=== PATIENT | female | born 1955 | race Caucasian/White ===

== ENCOUNTER 2016-03-31 18:49 | Emergency (ER) | payer OTHER, MEDICAID ==
--- NOTE | 2016-03-31 22:08 | ER Document Report ---
ED Fall - General Mode of Arrival: Ambulatory Information source: Patient TRAVEL OUTSIDE OF THE [place] IN LAST 30 DAYS: No - HPI Patient complains to provider of: knee pain Occurred: Just prior to arrival Associated symptoms: Other - See above - General Chief Complaint: Knee Pain Stated Complaint: FALL,LEFT KNEE PAIN Notes: Patient is a 60 year old female who presents to the emergency department with her daughter complaining of left knee pain after a fall just prior to arrival. Patient reports she was walking into her kitchen from the back porch when she fell forward. Patient denies hitting her head and loss of consciousness. Patient also complains of left great toe pain. (MEJIA SUNSHINE) - Related data Allergies/Adverse Reactions: Sulfa (Sulfonamide Antibiotics) Allergy (Severe, Verified 03/31/16 21:48) Hives Past Medical History - General Information source: Patient - Social History Smoking Status: Never Smoker Family History: Reviewed & Not Pertinent - Past Medical History Cardiac Medical History: Comment Only: Hx Hypertension - hypotension Pulmonary Medical History: Reports: Hx Asthma, Hx Bronchitis, Hx Pneumonia Neurological Medical History: Reports: Hx Migraine Endocrine Medical History: Reports: Hx Diabetes Mellitus Type 1, Hx Diabetes Mellitus Type 2, Hx Hypothyroidism Malignancy Medical History: Reports: Hx Breast Cancer GI Medical History: Reports: Hx Cirrhosis, Hx Gastroesophageal Reflux Disease Musculoskeltal Medical History: Reports Hx Arthritis Psychiatric Medical History: Reports: Hx Bipolar Disorder, Hx Depression Past Surgical History: Reports: Hx Hysterectomy, Hx Orthopedic Surgery - l hand. r foot surgeries, Hx Tonsillectomy - Immunizations Hx Diphtheria, Pertussis, Tetanus Vaccination: Yes - 2012 Review of Systems - Review of Systems Constitutional: No symptoms reported EENT: No symptoms reported Cardiovascular: No symptoms reported Respiratory: No symptoms reported Gastrointestinal: No symptoms reported Genitourinary: No symptoms reported Female Genitourinary: No symptoms reported Musculoskeletal: Joint pain - left knee, Other - left great toe pain Skin: No symptoms reported Hematologic/Lymphatic: No symptoms reported Neurological/Psychological: denies: Lost consciousness, Headaches -: Yes All other systems reviewed and negative Physical Exam - Vital signs Interpretation: Normal - General General appearance: Appears well, Alert - HEENT Head: Normocephalic, Atraumatic - Respiratory Respiratory status: No respiratory distress Chest status: Nontender Breath sounds: Normal Chest palpation: Normal - Cardiovascular Rhythm: Regular Heart sounds: Normal auscultation Murmur: No Pulses: Normal: Dorsalis pedis - Abdominal Inspection: Normal Distension: No distension Bowel sounds: Normal Tenderness: Nontender Organomegaly: No organomegaly - Extremities General upper extremity: Normal inspection General lower extremity: Other - Pain to palpation of left anterior tibia, no obvious deformities. Tenderness to palpation of left great toe. - Neurological Neuro grossly intact: Yes Cognition: Normal Orientation: AAOx4 Obdulia Coma Scale Eye Opening: Spontaneous Obdulia Coma Scale Verbal: Oriented Donnellson Coma Scale Motor: Obeys Commands Obdulia Coma Scale Total: 15 Speech: Normal - Psychological Associated symptoms: Normal affect, Normal mood - Skin Skin Temperature: Warm Skin Moisture: Dry Skin Color: Normal Course - Re-evaluation Re-evalutation: 04/01/16 02:10 I personally performed the services described in the documentation, reviewed and edited the documentation which was dictated to my scribe in my presence, and it accurately records my words and actions. presents emergency per with left knee pain left toe pain. Patient states she was walking in the back of the house slipped tripped and fell onto her knee. She denies hitting her head or loss consciousness no head neck chest back or abdominal pain. Pain to the knee on the anterior tibial no obvious swelling deformity ecchymosis contusion or ligamentous instability no Tenderness or swelling. On examination of the foot mild tenderness left great toe no obvious swelling deformity ecchymosis contusion or joint tenderness. Acute x-rays negative. We'll treat with Tylenol Motrin knee immobilizer postop shoe follow primary care physician discussed reasons Fredia return sooner (CADEN LEZAMA) - Vital Signs Vital signs: Temp Pulse Resp BP Pulse Ox 98.3 F 58 L 18 126/68 H 94 03/31/16 19:54 03/31/16 19:54 03/31/16 19:54 03/31/16 19:54 03/31/16 19:54 (MEJIA SUNSHINE) (CADEN LEZAMA) Discharge - Discharge Clinical Impression: Fall Qualifiers: Encounter type: initial encounter Qualified Code(s): W19.XXXA - Unspecified fall, initial encounter Knee sprain Qualifiers: Encounter type: initial encounter Involved ligament of knee: unspecified ligament Laterality: left Qualified Code(s): S83.92XA - Sprain of unspecified site of left knee, initial encounter Toe sprain Qualifiers: Encounter type: initial encounter Qualified Code(s): S93.509A - Unspecified sprain of unspecified toe(s), initial encounter Condition: Stable Disposition: HOME, SELF-CARE Instructions: Knee Immobilizing Splint ([facility]), Sprain ([facility]) Additional Instructions: Sprain Your injury is a sprain. A sprain results from stretching or tearing of the ligaments, usually from a twisting injury. The ligaments will require time and protection in order to heal properly. Many sprains are quite disabling and should be taken seriously. The usual initial treatment of sprains is cold packs, elevation, and rest of the injured area. Your physician has assessed the seriousness of your ligament injury, and has outlined a treatment plan. Understand that this treatment may change, depending on how you progress. If a re-examination was recommended, it is important that you follow up as instructed. Call the doctor any time if there is severe pain, numbness, or loss of function in the injured area. Operative primary care physician for 5 days return for increasing worsening or new symptoms Scribe Documentation - Scribe Written by Eren:: eren Mckeon, 03/31/16, 24:14 acting as scribe for :: Emmett
[2016-03-31] MEDS ORDERED: HYDROCODONE/ACETAMINOPHEN 5-325 MG TABLET PO ONE (22:09)
[2016-04-01 02:51] VITALS: BP 110/50
== END 2016-04-01 03:06 | disposition home or self-care (01) ==
LOC: ER 18:49
DX: S83.92XA Sprain of unspecified site of left knee, initial encounter (principal); S93.509A Unspecified sprain of unspecified toe(s), initial encounter; W01.0XXA Fall on same level from slipping, tripping and stumbling without subsequent striking against object, initial encounter; Y93.89 Activity, other specified; Y92.000 Kitchen of unspecified non-institutional (private) residence as the place of occurrence of the external cause; M25.562 Pain in left knee; M79.675 Pain in left toe(s); J45.909 Unspecified asthma, uncomplicated; E11.9 Type 2 diabetes mellitus without complications; Z85.3 Personal history of malignant neoplasm of breast; Z88.2 Allergy status to sulfonamides
CPT/HCPCS: 99283; 73562; 73660; L1830

== ENCOUNTER 2016-10-09 21:25 | Inpatient (IN) | payer OTHER, MEDICAID ==
[2016-10-09] MEDS ORDERED: IPRATROPIUM/ALBUTEROL 0.5-2.5 MG/3 ML AMPUL NEB ONE ×2 (21:40→21:42)
[2016-10-09] MEDS ORDERED: METHYLPREDNISOLONE INJ 125 MG/2 ML SDV IV ONE (21:40)
[2016-10-09] MEDS ORDERED: ALBUTEROL SULFATE 0.083% NEB 2.5 MG/3 ML AMPUL NEB ONE ×2 (21:45→23:17)
[2016-10-09] MEDS ORDERED: MAGNESIUM SULFATE/D5W 2 GM/200 ML RTUPB IV ONE (21:46)
--- NOTE | 2016-10-09 21:51 | ER Document Report ---
ED General - General Chief Complaint: Asthma Exacerbation Stated Complaint: DIFFICULTY BREATHING Time Seen by Provider: 10/09/16 21:42 Cannot obtain history due to: Unstable vital signs, Other - Respiratory distress Notes: Patient is a 61-year-old female with past medical history of asthma, not a smoker, no prior intubations but does have prior hospitalizations for the same who presents with apparently 2 days of progressively worsening shortness of breath and cough. History is extremely limited secondary to patient's severe respiratory distress at time of initial assessment and her difficulty speaking. Patient apparently has been taking albuterol inhalers at home without improvement. She has not been able to see her primary care doctor about her worsening symptoms. Notes that she has had a persistent cough which worsens her symptoms. Denies any associated fever or sputum production. TRAVEL OUTSIDE OF THE [place] IN LAST 30 DAYS: No - Related Data Allergies/Adverse Reactions: Sulfa (Sulfonamide Antibiotics) Allergy (Severe, Verified 10/09/16 22:05) Hives Past Medical History - General Information source: Patient - Social History Smoking Status: Never Smoker Frequency of alcohol use: None Drug Abuse: None Lives with: Family Family History: Reviewed & Not Pertinent Patient has suicidal ideation: No Patient has homicidal ideation: No - Past Medical History Cardiac Medical History: Comment Only: Hx Hypertension - hypotension Pulmonary Medical History: Reports: Hx Asthma, Hx Bronchitis, Hx Pneumonia Neurological Medical History: Reports: Hx Migraine Endocrine Medical History: Reports: Hx Diabetes Mellitus Type 1, Hx Diabetes Mellitus Type 2, Hx Hypothyroidism Renal/ Medical History: Denies: Hx Peritoneal Dialysis Malignancy Medical History: Reports: Hx Breast Cancer GI Medical History: Reports: Hx Cirrhosis, Hx Gastroesophageal Reflux Disease Musculoskeltal Medical History: Reports Hx Arthritis Psychiatric Medical History: Reports: Hx Bipolar Disorder, Hx Depression Past Surgical History: Reports: Hx Hysterectomy, Hx Orthopedic Surgery - l hand. r foot surgeries, Hx Tonsillectomy - Immunizations Hx Diphtheria, Pertussis, Tetanus Vaccination: Yes - 2012 Review of Systems - Review of Systems Notes: Constitutional: Negative for fever. HENT: Negative for sore throat. Eyes: Negative for visual changes. Cardiovascular: Negative for chest pain. Respiratory: Positive for shortness of breath. Gastrointestinal: Negative for abdominal pain, vomiting or diarrhea. Genitourinary: Negative for dysuria. Musculoskeletal: Negative for back pain. Skin: Negative for rash. Neurological: Negative for headaches, weakness or numbness. 10 point ROS negative except as marked above and in HPI. Physical Exam - Vital signs Vitals: Temp Pulse Resp BP Pulse Ox 98.2 F 79 28 H 137/56 H 85 L 10/09/16 21:36 10/09/16 21:36 10/09/16 21:36 10/09/16 21:36 10/09/16 21:36 Interpretation: Tachycardic, Hypoxic Notes: PHYSICAL EXAMINATION: GENERAL: Patient is in severe respiratory distress, retracting and appears extremely uncomfortable HEAD: Atraumatic, normocephalic. EYES: Pupils equal round and reactive to light, extraocular movements intact, sclera anicteric, conjunctiva are normal. ENT: nares patent, oropharynx clear without exudates. Moderately dry mucous membranes. NECK: Normal range of motion, supple without lymphadenopathy LUNGS: Poor air movement throughout, extensive wheezing in all lung bran with a prolonged expiratory phase. Intercostal and supraclavicular retractions are present. Tachypnea with initial respiratory rate of 32 at time of my assessment. HEART: Regular rate and rhythm without murmurs ABDOMEN: Soft, nontender, normoactive bowel sounds. No guarding, no rebound. No masses appreciated. EXTREMITIES: Normal range of motion, no pitting or edema. No cyanosis. NEUROLOGICAL: No focal neurological deficits. Moves all extremities spontaneously and on command. PSYCH: Appears anxious SKIN: Warm, Dry, normal turgor, no rashes or lesions noted. Course - Re-evaluation Re-evalutation: 10/09/16 21:50 Patient presents in severe respiratory distress, only able to speak to her that needed to take a breath. Respiratory rate 28 breaths per minute with intercostal retractions and supraclavicular retractions. Initial oxygen saturation 85% on room air. Diffuse core with wheezing in all lung bran with poor air movement bilaterally on initial examination. Patient was immediately placed on a continuous albuterol and Atrovent nebulizer, IV access was established and Solu-Medrol, magnesium were administered. She will be monitored very closely given her ill appearance, poor respiratory status, and is at risk for respiratory decompensation. Is critically ill at this time. 10/09/16 22:06 Venous blood gas does show appropriate hypocapnia although on reassessment patient continues to be in respiratory distress, appears to be fatiguing. Patient notes that she does feel extremely tired. Will place on BiPAP immediately at this time. 10/09/16 23:10 Patient is now much improved on BiPAP, continues to be wheezing throughout but much improved work of breathing and air movement at this time. 10 additional milligrams of albuterol will be started at this time. I have discussed with Dr. Douglas who will admit - Vital Signs Vital signs: Temp Pulse Resp BP Pulse Ox 98.2 F 79 18 124/64 94 10/09/16 21:36 10/09/16 21:36 10/10/16 00:08 10/10/16 00:08 10/10/16 00:08 - Laboratory Result Diagrams: 10/09/16 21:40 10/09/16 21:40 Laboratory results interpreted by me: 10/09/16 10/09/16 10/09/16 21:40 21:40 21:40 Plt Count 91 L VBG pCO2 33.5 L Est GFR (Non-Af Amer) 49 L AST 10/09/16 21:40 Plt Count VBG pCO2 Est GFR (Non-Af Amer) AST 47 H - Diagnostic Test Radiology reviewed: Image reviewed, Reports reviewed Radiology results interpreted by me: 10/09/16 23:15 Chest x-ray: No acute infiltrate or pneumothorax Critical Care Note - Critical Care Note Total time excluding time spent on procedures (mins): 45 Comments: Critical care time spent obtaining history from patient or surrogate, discussions with consultants, development of treatment plan with patient or surrogate, evaluation of patient's response to treatment, examination of patient , ordering and performing treatments and interventions, ordering and review of laboratory studies, re-evaluation of patient's condition, ordering and review of radiographic studies and review of old charts Discharge - Discharge Clinical Impression: Respiratory distress, Asthma exacerbation Condition: Fair Disposition: ADMITTED INPATIENT Admitting Provider: Shantal Douglas Unit Admitted: [facility]
[2016-10-09] MEDS: MAGNESIUM SULFATE/D5W 100 ML IV SCH ×2 (21:55→22:30)
[2016-10-09] MEDS: ALBUTEROL SULFATE 0.083% NEB 2.5 MG/3 ML AMPUL NEB SCH ×2 (21:57→22:30)
[2016-10-09 22:03] LABS: VENOUS BLOOD HCO3 20.1 mmol/L (20-32); VENOUS BLOOD PCO2 33.5 mmHg (35-63); VENOUS BLOOD PH 7.4 (7.30-7.42)
[2016-10-09 22:07] LABS: ABSOLUTE EOSINOPHILS # (AUTO) 0.1 10^3/uL (0.0-0.6); ABSOLUTE LYMPHOCYTES (AUTO) 1.2 10^3/uL (0.5-4.7); ABSOLUTE MONOCYTES (AUTO) 0.8 10^3/uL (0.1-1.4); ABSOLUTE NEUT (AUTO) 4.6 10^3/uL (1.7-8.2); BASOPHILS % (AUTO) 0.5 % (0-2); EOSINOPHILS % (AUTO) 1.6 % (0-6); HEMATOCRIT 42.7 % (36.0-47.0); HEMOGLOBIN 13.8 g/dL (12.0-15.5); HGB HCT DIFFERENCE -1.3; LYMPHOCYTES % (AUTO) 18.4 % (13-45); MEAN CORPUSCULAR HEMOGLOBIN 28.7 pg (27.0-33.4); MEAN CORPUSCULAR HGB CONC 32.4 g/dL (32.0-36.0); MEAN CORPUSCULAR VOLUME 89 fl (80-97); MONOCYTES % (AUTO) 11.1 % (3-13); RED BLOOD COUNT 4.82 10^6/uL (3.72-5.28); SEGMENTED NEUTROPHILS % (AUTO) 68.4 % (42-78); WHITE BLOOD COUNT 6.8 10^3/uL (4.0-10.5)
--- NOTE | 2016-10-09 22:12 | RADIOLOGY REPORT (SQ) ---
EXAM DESCRIPTION: CHEST SINGLE VIEW COMPLETED DATE/TIME: 10/09/2016 10:00 pm REASON FOR STUDY: difficulty breathing COMPARISON: 04/11/2015. EXAM PARAMETERS: NUMBER OF VIEWS: One view. TECHNIQUE: Single frontal radiographic view of the chest acquired. RADIATION DOSE: NA LIMITATIONS: None. FINDINGS: LUNGS AND PLEURA: No opacities, masses or pneumothorax. No pleural effusion. MEDIASTINUM AND HILAR STRUCTURES: No masses. Contour normal. HEART AND VASCULAR STRUCTURES: Heart upper limits of normal in size. Normal vasculature. BONES: No acute findings. HARDWARE: None in the chest. OTHER: No other significant finding. IMPRESSION: NO ACUTE RADIOGRAPHIC FINDING IN THE CHEST. TECHNICAL DOCUMENTATION: JOB ID: [id number]
[2016-10-09 22:20] LABS: ANION GAP 13 (5-19); BLOOD UREA NITROGEN 19 mg/dL (7-20); CARBON DIOXIDE 24 mmol/L (22-30); CHLORIDE 105 mmol/L (98-107); CREATININE RESULT 1.12 mg/dL (0.52-1.25); GLUCOSE 100 mg/dL (75-110); POTASSIUM 4.9 mmol/L (3.6-5.0); SODIUM 142.4 mmol/L (137-145)
[2016-10-09] MEDS ORDERED: KETOROLAC TROMETHAMINE INJ/PF 30 MG/1 ML SDV IV ONE (23:17)
[2016-10-09 23:26] LABS: ADD ON TESTING BLD IN LAB ACKNOWLEDGE
[2016-10-09 23:39] LABS: ALANINE AMINOTRANSFERASE 42 U/L (9-52); ALBUMIN 4.4 g/dL (3.5-5.0); ALKALINE PHOSPHATASE 64 U/L (38-126); ASPARTATE AMINO TRANSFERASE 47 U/L (14-36); BILIRUBIN,DIRECT 0.4 mg/dL (0.0-0.4); BILIRUBIN,TOTAL 0.7 mg/dL (0.2-1.3); MAGNESIUM 1.7 mg/dL (1.6-2.3); TOTAL PROTEIN 7.7 g/dL (6.3-8.2)
[2016-10-10 00:16] LABS: APPEARANCE,URINE CLEAR; BILIRUBIN,URINE NEGATIVE (NEGATIVE); GLUCOSE, URINE NEGATIVE (NEGATIVE); KETONES,URINE NEGATIVE (NEGATIVE); LEUKOCYTE ESTERASE,URINE MODERATE (NEGATIVE); NITRITE,URINE NEGATIVE (NEGATIVE); PROTEIN,URINE NEGATIVE (NEGATIVE); URINE SPECIFIC GRAVITY 1.013; UROBILINOGEN,URINE NEGATIVE mg/dL (<2.0)
[2016-10-10] MEDS ORDERED: GLUCAGON,HUMAN RECOMB 1 MG INJ IM PRN (00:45)
[2016-10-10] MEDS ORDERED: DEXTROSE 40% GEL 15 GM TUBE PO PRN ×2 (00:45)
[2016-10-10] MEDS ORDERED: DEXTROSE 50%-WATER 25 GM/50 ML DISP.SYRIN IV PRN ×2 (00:45)
[2016-10-10] MEDS ORDERED: NORMAL SALINE 1000 ML 1,000 ML IV PRN (00:53)
[2016-10-10] MEDS ORDERED: ALBUTEROL SULFATE 0.083% NEB 2.5 MG/3 ML AMPUL NEB PRN (00:53)
[2016-10-10] MEDS ORDERED: ACETAMINOPHEN 325 MG TABLET PO PRN (00:56)
[2016-10-10] MEDS ORDERED: MAGNESIUM HYDROXIDE SUSP 30 ML UDCUP PO PRN (00:57)
--- NOTE | 2016-10-10 01:23 | PDOC H&P ---
History of Present Illness Admission Date/PCP: 10/10/16 00:47 Primary care provider [facility] Patient complains of: Difficulty breathing History of Present Illness: IGOR MCCULLOUGH is a 61 year old female with underlying asthma, but by her account not COPD, who presents to the emergency room for evaluation treatment of a 24 hour history of progressive difficulty breathing. Associated wheezing, along with chills and a cough productive of small amounts of brown sputum. No fever, nausea vomiting, or dysuria. Intermittent chronic diarrhea, which is not a new problem for her. Mild chest wall discomfort with her coughing. Otherwise, no chest or abdominal pain. Was in significant respiratory distress upon arrival, but has responded well to treatment so far, including application of BiPAP. Currently breathing much more comfortably now and resting quietly. Does not recall a specific triggering event that led to above symptoms. Last antibiotic use 2 months ago for respiratory issues, consisting of a 10 day course of Cipro. No hospitalization in the last 3 months. No prior intubation for respiratory difficulty. No home oxygen. As needed steroids only. Patient has been discussed with emergency room physician who evaluated the patient. . Laboratory results are listed in [facility] and are reviewed. X-ray summary results are listed below, with full report(s) reviewed. . Social history/personal habits: . 4 children. Retired. Lives with daughter. No use of alcohol tobacco or illicit drugs. Allergies/adverse reactions are listed in [facility] and are reviewed. Home medications initially autopopulated into [facility] may not accurately reflect patient's true medications, dosages, and/or frequencies. cardiovascular surgical tech to reconcile medications. Unfortunately, patient not certain of all medications/dosages/frequencies. REVIEW OF SYSTEMS: Constitutional: See history and present illness. Eyes: Wears glasses. ENT: No swallowing problems or complaints. Denies hearing loss. Pulmonary: See history and present illness. Cardiovascular: See history and present illness. Gastrointestinal: See history and present illness. Skin: No current complaints, including rashes. Hematologic: Easy bruising. Neurologic: No current complaints, including numbness or tingling. Musculoskeletal: Joint pain from arthritis. Psychiatric: Denies anxiety or depression. Endocrine: No current complaints, including polyuria. Genitourinary: No current complaints, including dysuria. 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 5 feet 6 inches tall. 83.9 kg. BMI 29.9 kg/m. Blood pressure 124/64. Pulse 76 and regular. 98% saturation on BiPAP 10/6, 60% FiO2. Respirations are 16 and unlabored. Temperature 98.2. Slightly overweight otherwise well-nourished well-developed though somewhat chronically ill-appearing female who appears perhaps a bit older than her stated age. Somewhat fatigued appearance. Appears to feel a bit under the weather, so to speak. Otherwise, awake alert and cooperative. Mildly anxious, without agitation. Skin is warm and dry. No grossly obvious evidence of rash in areas of skin examined. No subcutaneous nodules palpated. ENT: Hearing grossly normal to normal conversation. Tongue midline on protrusion pink and slightly tacky. Exam slightly limited by BiPAP mask with attaching straps. Eyes: No scleral icterus. Pupils equal and reactive to light at 4 mm. [place] conjunctivae. Neck is supple and nontender to gentle active range of motion and palpation. Midline trachea. No palpable thyroid nodule mass enlargement or tenderness. Lymphatic: No palpable cervical or clavicular nodes. Neck and lymphatic exams limited by patient body habitus. Exam slightly limited by BiPAP mask with attaching straps. Psychiatric: Reasonable insight into acute and chronic medical issues. Oriented to time location and why here. Lungs: Auscultation reveals equal breath sounds bilaterally. No use of accessory respiratory muscles. Mild diffuse inspiratory and expiratory wheezing throughout, with expiratory component more prominent Cardiovascular: Heart regular rate and rhythm, without gallop murmur or rub. No abdominal aortic bruits. No ankle or pedal edema. Palpable dorsalis pedis pulses. Difficult to evaluate for carotid bruit due to airway sounds from BiPAP device. Abdomen:soft slightly distended nontender with positive bowel sounds. Unable to adequately evaluate abdomen for masses or organomegaly due to distention. Extremities: Feet are warm and dry. No calf tenderness to compression. No grossly obvious visual evidence of calf swelling. Gentle manipulation of lower extremities fails to reveal any obvious evidence of injury or instability to knees hips or ankles. Neurologic: Moves upper extremities grossly normally. Patellar reflexes absent. Absent Babinski. Light touch is intact at feet. Dorsiflexion and plantarflexion of feet 5 / 5 and symmetric. Past Medical History Cardiac Medical History: Reports: Hyperlipidema Denies: Atrial Fibrillation, Congestive Heart Failure, DVT, Myocardial Infarction, Hypertension, Pulmonary Embolism Pulmonary Medical History: Reports: Asthma, Bronchitis, Pneumonia Denies: Sleep Apnea EENT Medical History: Reports: Eyes - Reading glasses Denies: Ears, Throat Neurological Medical History: Reports: Migraine Denies: Hemorrhagic CVA, Ischemic CVA, Seizures Endocrine Medical History: Reports: Diabetes Mellitus Type 1, Diabetes Mellitus Type 2, Hypothyroidism Denies: Hyperthyroidism Renal/ Medical History: Reports: Other - Frequent urinary tract infections. Malignancy Medical History: Reports: Breast Cancer - S/P partial mastectomy, with chemoradiation treatment, completed 2013 GI Medical History: Reports: Cirrhosis - Uncertain etiology per patient., Gastroesophageal Reflux Disease Denies: Peptic Ulcer Disease Musculoskeltal Medical History: Reports: Arthritis Skin Medical History: Reports: None Psychiatric Medical History: Reports: Bipolar Disorder Denies: Alcohol Dependency, Substance Abuse, Tobacco Dependency Hematology: Reports: Anemia - Currently, Other - Easy bruising Infectious Medical History: Denies: Clostridium Difficile, Methicillin-Resistant Staph Aureus Past Surgical History Past Surgical History: Reports: Hysterectomy, Mastectomy - Partial right mastectomy, 2013, Orthopedic Surgery - l hand. r foot surgeries, Tonsillectomy Social History Information Source: Patient, Emergency Med Personnel, [facility] Records Smoking Status: Unknown if Ever Smoked Frequency of Alcohol Use: None Hx Recreational Drug Use: No Drugs: None Hx Prescription Drug Abuse: No - Advance Directive Resuscitation Status: Full Code Surrogate healthcare decision maker:: Daughter Kalee Mccullough Family History Family History: Reviewed & Not Pertinent Parental Family History Reviewed: Yes - Mother of renal failure. Father of "broken heart" Children Family History Reviewed: Yes - Son with asthma. Sibling(s) Family History Reviewed.: Yes - One sister of cancer; other after pneumonia. Medication/Allergy Home Medications: Trazodone HCl [Desyrel] 300 mg PO HSP PRN 10/10/16 Acyclovir [Acyclovir 400 mg Tablet] 400 mg PO ASDIR PRN 10/11/16 Albiglutide [Tanzeum] 30 mg INJ FR@1000 10/11/16 Albuterol Sulfate [Proair HFA] 2 puff IH Q4HP PRN 10/11/16 Aspirin [Aspirin EC] 81 mg PO DAILY 10/11/16 Celecoxib [Celebrex 200 mg Capsule] 200 mg PO Q12 10/11/16 Cetirizine HCl [Zyrtec 10 mg Tablet] 10 mg PO DAILYP PRN 10/11/16 Donepezil HCl [Aricept] 10 mg PO DAILY 10/11/16 Fenofibrate Nanocrystallized [Tricor 145 mg Tablet] 145 mg PO DAILY 10/11/16 Fluticasone/Salmeterol [Advair 100-50 Diskus 28 Dose] 1 puff IH Q12 10/11/16 Hydroxyzine HCl [Atarax 25 mg Tablet] 25 mg PO HSP PRN 10/11/16 Insulin Aspart [Novolog Insulin (Aspart) 100 unit/mL] 0 unit SQ MEALS PRN Insulin Glargine,Hum.rec.anlog [Lantus Solostar] 90 units SQ QHS 10/11/16 Ipratropium/Albuterol Sulfate [Iprat-Albut 0.5-3(2.5) mg/3 ml] 3 ml NEB RTQ4HP PRN 10/11/16 Lamotrigine [Lamictal] 200 mg PO DAILY 10/11/16 Levothyroxine Sodium [Synthroid 0.05 mg Tablet] 50 mcg PO QAM 10/11/16 Lorazepam [Ativan 1 mg Tablet] 1 mg PO Q12HP PRN 10/11/16 Metformin HCl [Glucophage] 1,000 mg PO BID 10/11/16 Montelukast Sodium [Singulair 10 mg Tablet] 10 mg PO QPM 10/11/16 Pantoprazole Sodium [Protonix] 40 mg PO DAILY 10/11/16 Pnv with Ca,No.72/Iron/FA [ Plus Tablet] 1 tab PO DAILY 10/11/16 Pregabalin [Lyrica 100 mg Capsule] 100 mg PO Q8 10/11/16 Rosuvastatin Calcium [Crestor 20 mg Tablet] 20 mg PO DAILY 10/11/16 Tolterodine Tartrate [Detrol LA] 4 mg PO DAILY 10/11/16 Ziprasidone HCl [Geodon 60 mg Capsule] 60 mg PO DAILY 10/11/16 Levofloxacin [Levaquin 750 mg Tablet] 750 mg PO DAILY@1400 #5 tablet 10/12/16 Prednisone [Sterapred Ds] 1 pkg PO ASDIR PRN 12 Days 10/12/16 Allergies/Adverse Reactions: Sulfa (Sulfonamide Antibiotics) Allergy (Severe, Verified 10/09/16 22:05) Hives Physical Exam Vital Signs: Temp Pulse Resp BP Pulse Ox 98.2 F 79 17 124/64 98 10/09/16 21:36 10/09/16 21:36 10/10/16 00:35 10/10/16 00:08 10/10/16 00:35 Results Impressions: Chest X-Ray 10/09/16 21:40 IMPRESSION: NO ACUTE RADIOGRAPHIC FINDING IN THE CHEST. Assessment & Plan - Diagnosis (1) Bipolar disorder Qualifiers: Active/Remission status: remission status unspecified Qualified Code (s): F31.9 - Bipolar disorder, unspecified Is this a current diagnosis for this admission?: YesPlan: Resume home medications as appropriate once these have been determined and reviewed. (2) Acute and chronic respiratory failure with hypoxia Is this a current diagnosis for this admission?: YesPlan: Patient will be admitted under asthma exacerbation protocol. Incentive spirometry twice a day. Scheduled DuoNeb's. As needed albuterol nebs. Solu-Medrol. Prevacid for gastritis prophylaxis. Maintain CPAP; wean as tolerated. I strongly encouraged patient to notify staff should patient feel that breathing is worsening. Patient is a full code. I have strongly encouraged patient not to get out of bed without notifying staff , to avoid a fall with injury. Knee high SCDs for DVT prophylaxis; with underlying thrombocytopenia, likely secondary to her cirrhosis, we will forego Lovenox or heparin at this point in time. Impression and plans were discussed with patient who concurs. Time spent in evaluation and management of patient: 70 critical-care minutes. (3) Asthma exacerbation Is this a current diagnosis for this admission?: Yes (4) UTI (urinary tract infection) Qualifiers: Urinary tract infection type: site unspecified Is this a current diagnosis for this admission?: YesPlan: Blood and urine cultures. Rocephin. (5) Diabetes mellitus type 1 Qualifiers: Diabetes mellitus complication status: without complication Qualified Code(s): E10.9 - Type 1 diabetes mellitus without complications Is this a current diagnosis for this admission?: YesPlan: Ice chips only while on CPAP.. Accu-Cheks with appropriate sliding scale coverage. Resume home medications as appropriate once these have been determined and reviewed. (6) HLD (hyperlipidemia) Qualifiers: Hyperlipidemia type: unspecified Qualified Code(s): E78.5 - Hyperlipidemia, unspecified Is this a current diagnosis for this admission?: YesPlan: Resume home medications as appropriate once these have been determined and reviewed. (7) Hypothyroidism Qualifiers: Hypothyroidism type: unspecified Qualified Code(s): E03.9 - Hypothyroidism, unspecified Is this a current diagnosis for this admission?: YesPlan: TSH pending. Resume home medications as appropriate once these have been determined and reviewed. (8) Thrombocytopenia Is this a current diagnosis for this admission?: YesPlan: Likely due to underlying cirrhosis. Follow-up CBC with differential. - Time Anticipated discharge: Home Within: within 72 hours - Inpatient Certification Based on my medical assessment, after consideration of the patient's comorbidities, presenting symptoms, or acuity I expect that the services needed warrant INPATIENT care.: Yes I certify that my determination is in accordance with my understanding of Medicare's requirements for reasonable and necessary INPATIENT services [42 CFR 412.3e].: Yes Medical Necessity: Need Close Monitoring Due to Risk of Patient Decompensation, Need For IV Fluids, Need For Continuous Telemetry Monitoring, Need for Nebulizer Therapy and Monitoring of Response, Need for IV Antibiotics, Risk of Complication if Not Cared For in Hospital Post Hospital Care: D/C or Transfer Summary
[2016-10-10] MEDS ORDERED: CEFTRIAXONE 1 GM/D5W RTU 1 GM/50 ML RTUPB IV ONE (02:00)
[2016-10-10 02:10] LABS: VENOUS BLOOD BASE EXCESS 0.8 mmol/L; VENOUS BLOOD HCO3 27.3 mmol/L (20-32); VENOUS BLOOD PCO2 51.1 mmHg (35-63); VENOUS BLOOD PH 7.35 (7.30-7.42)
[2016-10-10] MEDS: LANSOPRAZOLE 30 MG TAB.RAP.DR PO SCH (05:18)
[2016-10-10 05:43] LABS: VENOUS BLOOD BASE EXCESS -0.1 mmol/L; VENOUS BLOOD HCO3 25.9 mmol/L (20-32); VENOUS BLOOD PCO2 47.5 mmHg (35-63); VENOUS BLOOD PH 7.35 (7.30-7.42)
[2016-10-10 05:52] LABS: PROTHROMBIN TIME 15.5 SEC (11.4-15.4)
[2016-10-10 05:53] LABS: PARTIAL THROMBOPLASTIN TIME 34.1 SEC (23.5-35.8)
[2016-10-10 06:00] LABS: ANION GAP 9 (5-19); BLOOD UREA NITROGEN 22 mg/dL (7-20); CALCIUM 9.2 mg/dL (8.4-10.2); CARBON DIOXIDE 24 mmol/L (22-30); CHLORIDE 106 mmol/L (98-107); CREATININE RESULT 1.06 mg/dL (0.52-1.25); GLUCOSE 183 mg/dL (75-110); POTASSIUM 5.1 mmol/L (3.6-5.0); SODIUM 138.7 mmol/L (137-145)
[2016-10-10] MEDS ORDERED: METHYLPREDNISOLONE INJ 125 MG/2 ML SDV IV SCH (06:00)
[2016-10-10 06:48] LABS: ABSOLUTE LYMPHOCYTES (AUTO) 0.7 10^3/uL (0.5-4.7); ABSOLUTE MONOCYTES (AUTO) 0.3 10^3/uL (0.1-1.4); ABSOLUTE NEUT (AUTO) 3.8 10^3/uL (1.7-8.2); BASOPHILS % (AUTO) 0.3 % (0-2); EOSINOPHILS % (AUTO) 0.6 % (0-6); HEMATOCRIT 38.9 % (36.0-47.0); HEMOGLOBIN 12.7 g/dL (12.0-15.5); HGB HCT DIFFERENCE -0.8; LYMPHOCYTES % (AUTO) 14.2 % (13-45); MEAN CORPUSCULAR HEMOGLOBIN 29.2 pg (27.0-33.4); MEAN CORPUSCULAR HGB CONC 32.7 g/dL (32.0-36.0); MEAN CORPUSCULAR VOLUME 89 fl (80-97); MONOCYTES % (AUTO) 5.3 % (3-13); RED BLOOD COUNT 4.36 10^6/uL (3.72-5.28); RED CELL DISTRIBUTION WIDTH 13.8 % (11.5-14.0); SEGMENTED NEUTROPHILS % (AUTO) 79.6 % (42-78); WHITE BLOOD COUNT 4.7 10^3/uL (4.0-10.5)
[2016-10-10] MEDS: INSULIN LISPRO 100 UNIT/ML 3 ML VIAL SUBCUT PRN ×2 (06:59→22:02)
[2016-10-10] MEDS ORDERED: IPRATROPIUM/ALBUTEROL 0.5-2.5 MG/3 ML AMPUL NEB SCH (08:00)
[2016-10-10] MEDS ORDERED: SODIUM POLYSTYRENE SULFONATE 15 GM/60 ML PO ONE (12:12)
[2016-10-10] MEDS: DOCUSATE SODIUM 100 MG CAPSULE PO SCH ×2 (12:20→17:35)
[2016-10-10] MEDS: CEFTRIAXONE 1 GM/D5W RTU 1 GM/50 ML RTUPB IV SCH (12:20)
[2016-10-10] MEDS: IPRATROPIUM/ALBUTEROL 0.5-2.5 MG/3 ML AMPUL NEB SCH ×2 (16:18→19:58)
[2016-10-10] MEDS: METHYLPREDNISOLONE INJ 125 MG/2 ML SDV IV SCH ×2 (17:37→20:17)
[2016-10-10] MEDS ORDERED: TRAZODONE HCL 50 MG TABLET PO PRN (22:22)
[2016-10-11] MEDS: IPRATROPIUM/ALBUTEROL 0.5-2.5 MG/3 ML AMPUL NEB SCH ×6 (00:12→20:01)
[2016-10-11] MEDS: METHYLPREDNISOLONE INJ 125 MG/2 ML SDV IV SCH ×4 (02:48→20:20)
[2016-10-11] MEDS: LANSOPRAZOLE 30 MG TAB.RAP.DR PO SCH (05:25)
[2016-10-11 05:31] LABS: ANION GAP 10 (5-19); BLOOD UREA NITROGEN 24 mg/dL (7-20); CALCIUM 9.1 mg/dL (8.4-10.2); CARBON DIOXIDE 22 mmol/L (22-30); CHLORIDE 108 mmol/L (98-107); CREATININE RESULT 0.84 mg/dL (0.52-1.25); GLUCOSE 199 mg/dL (75-110); POTASSIUM 4.7 mmol/L (3.6-5.0); SODIUM 139.9 mmol/L (137-145)
[2016-10-11] MEDS: DOCUSATE SODIUM 100 MG CAPSULE PO SCH ×2 (09:25→16:37)
[2016-10-11] MEDS: CEFTRIAXONE 1 GM/D5W RTU 1 GM/50 ML RTUPB IV SCH (09:38)
[2016-10-11] MEDS ORDERED: NORMAL SALINE 1000 ML 1,000 ML IV PRN (10:25)
[2016-10-11] MEDS ORDERED: TRAZODONE HCL 50 MG TABLET PO PRN (10:25)
--- NOTE | 2016-10-11 10:39 | PDOC PROGRESS REPORT ---
Subjective Progress Note for:: 10/11/16 Subjective:: Patient is breathing better this morning still with some wheezing and coughing but a lot better. Denies any chills or fever. No nausea or vomiting. No chest pain at this time. No PND orthopnea. Denies diarrhea as well. Patient reports taking trazodone 300 mg p.o. at bedtime. Physical Exam Vital Signs: Temp Pulse Resp BP Pulse Ox 97.7 F 65 18 100/74 96 10/11/16 04:09 10/11/16 04:17 10/11/16 04:17 10/11/16 04:09 10/11/16 04:17 Intake & Output 10/10/16 10/11/16 10/12/16 06:59 06:59 06:59 Intake Total 100 2835 Balance 100 2835 Weight 83 kg 82.1 kg General appearance: PRESENT: no acute distress Head exam: PRESENT: normocephalic Eye exam: PRESENT: EOMI Mouth exam: PRESENT: moist, neck supple Neck exam: ABSENT: JVD Respiratory exam: PRESENT: rhonchi - Occasional, wheezes - Mild expiratory Cardiovascular exam: PRESENT: RRR. ABSENT: gallop GI/Abdominal exam: PRESENT: hypoactive bowel sounds, soft. ABSENT: distended, tenderness Extremities exam: ABSENT: pedal edema Neurological exam: PRESENT: alert, awake, oriented to situation Skin exam: PRESENT: dry, warm. ABSENT: cyanosis Results Laboratory Results: 10/10/16 05:36 10/11/16 04:52 10/10/16 10/11/16 15:49 04:52 Sodium 139.9 Potassium 4.8 4.7 Chloride 108 H Carbon Dioxide 22 Anion Gap 10 BUN 24 H Creatinine 0.84 Est GFR ( Amer) > 60 Est GFR (Non-Af Amer) > 60 Glucose 199 H Calcium 9.1 Impressions: Chest X-Ray 10/09/16 21:40 IMPRESSION: NO ACUTE RADIOGRAPHIC FINDING IN THE CHEST. Assessment & Plan - Time Time Spent with patient: 25-34 minutes - Plan Summary Plan Summary: We are going to continue steroids. Continue bronchodilators. Switch to oral antibiotic with Levaquin. Discontinue Rocephin. Decrease intravenous fluids. Resume home trazodone. Increase activity.
[2016-10-11] MEDS ORDERED: LOPERAMIDE HCL 2 MG CAPSULE PO PRN (15:17)
[2016-10-11] MEDS: LACTOBACILLUS ACIDOPHILUS 250 MG TAB PO SCH (16:36)
[2016-10-11] MEDS: LEVOFLOXACIN 750 MG TABLET PO SCH (16:36)
[2016-10-11] MEDS ORDERED: METRONIDAZOLE 500 MG TABLET PO ONE (17:00)
[2016-10-11] MEDS: GUAIFENESIN SYRP 200 MG/10 ML UDC PO PRN (21:10)
[2016-10-11] MEDS: METRONIDAZOLE 500 MG TABLET PO SCH (21:10)
[2016-10-12] MEDS: IPRATROPIUM/ALBUTEROL 0.5-2.5 MG/3 ML AMPUL NEB SCH ×4 (00:11→11:28)
[2016-10-12] MEDS: METHYLPREDNISOLONE INJ 125 MG/2 ML SDV IV SCH ×3 (03:33→14:22)
[2016-10-12] MEDS: GUAIFENESIN SYRP 200 MG/10 ML UDC PO PRN ×2 (03:33→08:25)
[2016-10-12] MEDS: LANSOPRAZOLE 30 MG TAB.RAP.DR PO SCH (06:11)
[2016-10-12] MEDS: METRONIDAZOLE 500 MG TABLET PO SCH ×2 (06:11→14:21)
[2016-10-12] MEDS: INSULIN LISPRO 100 UNIT/ML 3 ML VIAL SUBCUT PRN ×2 (08:25→11:59)
[2016-10-12] MEDS: DOCUSATE SODIUM 100 MG CAPSULE PO SCH (09:27)
[2016-10-12] MEDS: LACTOBACILLUS ACIDOPHILUS 250 MG TAB PO SCH (09:27)
[2016-10-12] MEDS ORDERED: LEVOTHYROXINE SODIUM 0.05 MG TABLET PO ONE (11:30)
--- NOTE | 2016-10-12 12:19 | EKG REPORT ---
SEVERITY:- OTHERWISE NORMAL ECG - SINUS BRADYCARDIA : Confirmed by: Dilip Min 12-Oct-2016 12:17:56
[2016-10-12] MEDS: LEVOFLOXACIN 750 MG TABLET PO SCH (14:22)
--- NOTE | 2016-10-12 15:22 | PDOC DISCHARGE SUMMARY ---
General - Admit/Disc Date/PCP Admission Date/Primary Care Provider: 10/10/16 00:47 Discharge Date: 10/12/16 - Discharge Diagnosis (1) Asthma exacerbation Is this a current diagnosis for this admission?: Yes (2) UTI (urinary tract infection) Is this a current diagnosis for this admission?: Yes (3) Bipolar 1 disorder Is this a current diagnosis for this admission?: Yes (4) Chronic pain syndrome Is this a current diagnosis for this admission?: Yes (5) Diabetes mellitus type 1 Is this a current diagnosis for this admission?: Yes (6) HLD (hyperlipidemia) Is this a current diagnosis for this admission?: Yes (7) Hypothyroidism Is this a current diagnosis for this admission?: Yes (8) Thrombocytopenia Is this a current diagnosis for this admission?: Yes - Additional Information Resuscitation Status: Full Code Discharge Diet: Cardiac - Low-fat low-salt, Diabetic - No concentrated sweets Discharge Activity: Activity As Tolerated, Balance Activity w/Rest, Slowly Increase Activity Home Medications: Trazodone HCl [Desyrel] 300 mg PO HSP PRN 10/10/16 Acyclovir [Acyclovir 400 mg Tablet] 400 mg PO ASDIR PRN 10/11/16 Albiglutide [Tanzeum] 30 mg INJ FR@1000 10/11/16 Albuterol Sulfate [Proair HFA] 2 puff IH Q4HP PRN 10/11/16 Aspirin [Aspirin EC] 81 mg PO DAILY 10/11/16 Celecoxib [Celebrex 200 mg Capsule] 200 mg PO Q12 10/11/16 Cetirizine HCl [Zyrtec 10 mg Tablet] 10 mg PO DAILYP PRN 10/11/16 Donepezil HCl [Aricept] 10 mg PO DAILY 10/11/16 Fenofibrate Nanocrystallized [Tricor 145 mg Tablet] 145 mg PO DAILY 10/11/16 Fluticasone/Salmeterol [Advair 100-50 Diskus 28 Dose] 1 puff IH Q12 10/11/16 Hydroxyzine HCl [Atarax 25 mg Tablet] 25 mg PO HSP PRN 10/11/16 Insulin Aspart [Novolog Insulin (Aspart) 100 unit/mL] 0 unit SQ MEALS PRN Insulin Glargine,Hum.rec.anlog [Lantus Solostar] 90 units SQ QHS 10/11/16 Ipratropium/Albuterol Sulfate [Iprat-Albut 0.5-3(2.5) mg/3 ml] 3 ml NEB RTQ4HP PRN 10/11/16 Lamotrigine [Lamictal] 200 mg PO DAILY 10/11/16 Levothyroxine Sodium [Synthroid 0.05 mg Tablet] 50 mcg PO QAM 10/11/16 Lorazepam [Ativan 1 mg Tablet] 1 mg PO Q12HP PRN 10/11/16 Metformin HCl [Glucophage] 1,000 mg PO BID 10/11/16 Montelukast Sodium [Singulair 10 mg Tablet] 10 mg PO QPM 10/11/16 Pantoprazole Sodium [Protonix] 40 mg PO DAILY 10/11/16 Pnv with Ca,No.72/Iron/FA [ Plus Tablet] 1 tab PO DAILY 10/11/16 Pregabalin [Lyrica 100 mg Capsule] 100 mg PO Q8 10/11/16 Rosuvastatin Calcium [Crestor 20 mg Tablet] 20 mg PO DAILY 10/11/16 Tolterodine Tartrate [Detrol LA] 4 mg PO DAILY 10/11/16 Ziprasidone HCl [Geodon 60 mg Capsule] 60 mg PO DAILY 10/11/16 Levofloxacin [Levaquin 750 mg Tablet] 750 mg PO DAILY@1400 #5 tablet 10/12/16 Prednisone [Sterapred Ds] 1 pkg PO ASDIR PRN 12 Days 10/12/16 Additional Information: Discontinue nadolol. Follow-up with primary care physician and monitor blood pressure and heart rate see if that allows still needed or change to either antihypertensive medication not causing significant bradycardia. Return to the emergency room if symptoms recur or worsens. History of Present Illness Patient complains of: Shortness of breath History of Present Illness: IGOR MCCULLOUGH is a 61 year old female with underlying asthma, but by her account not COPD, who presents to the emergency room for evaluation treatment of a 24 hour history of progressive difficulty breathing. Associated wheezing, along with chills and a cough productive of small amounts of brown sputum. No fever, nausea vomiting, or dysuria. Intermittent chronic diarrhea, which is not a new problem for her. Mild chest wall discomfort with her coughing. Otherwise, no chest or abdominal pain. Was in significant respiratory distress upon arrival, but has responded well to treatment so far, including application of BiPAP. Currently breathing much more comfortably now and resting quietly. Does not recall a specific triggering event that led to above symptoms. Last antibiotic use 2 months ago for respiratory issues, consisting of a 10 day course of Cipro. No hospitalization in the last 3 months. No prior intubation for respiratory difficulty. No home oxygen. As needed steroids only. Patient has been discussed with emergency room physician who evaluated the patient. . Laboratory results are listed in [facility] and are reviewed. X-ray summary results are listed below, with full report(s) reviewed. . Hospital Course Hospital Course: The patient was admitted to [facility]. Steroids and nebulizers were started. Patient also was started on antibiotics for urinary tract infection. Urine culture grew Streptococcus. Supplemental oxygen was given. The following day after admission patient still having wheezing and therefore steroid dose was increased. Subsequently with the above measures the patient significantly improved and oxygen was able to be weaned. Patient was able to ambulate around without distress and oxygenation was greater than 90% on room air. At this point the patient requested to be discharged and to continue treatment on an outpatient basis. Course however was noted for bradycardia, patient had a history of hypothyroidism and his Synthroid was continued. He was apparently on nadolol at home and he was advised to hold it until evaluated by his primary care physician. Patient was eventually discharged home improved with above instructions. Physical Exam Vital Signs: Temp Pulse Resp BP Pulse Ox 97.9 F 56 L 16 132/49 H 95 10/12/16 11:05 10/12/16 14:00 10/12/16 11:31 10/12/16 11:05 10/12/16 11:31 Intake & Output 10/11/16 10/12/16 10/13/16 06:59 06:59 06:59 Intake Total 2835 2895 100 Balance 2835 2895 100 Weight 82.1 kg 82.1 kg General appearance: PRESENT: no acute distress, cooperative, obese Head exam: PRESENT: normocephalic Eye exam: PRESENT: EOMI Mouth exam: PRESENT: moist, neck supple Neck exam: ABSENT: JVD Respiratory exam: PRESENT: rhonchi - Minimal. ABSENT: wheezes Cardiovascular exam: PRESENT: RRR. ABSENT: gallop GI/Abdominal exam: PRESENT: soft. ABSENT: distended, tenderness Extremities exam: ABSENT: pedal edema Neurological exam: PRESENT: alert, awake, oriented to person, oriented to place , oriented to time, oriented to situation Skin exam: PRESENT: dry, warm. ABSENT: cyanosis Results Laboratory Results: 10/10/16 05:36 10/11/16 04:52 Impressions: Chest X-Ray 10/09/16 21:40 IMPRESSION: NO ACUTE RADIOGRAPHIC FINDING IN THE CHEST. Qualifiers PATEINT BEING DISCHARGED WITH ANY OF THE FOLLOWING DIAGNOSIS?: No Plan Discharge Plan: Follow-up with primary care physician in 1 week. Time Spent: Less than 30 Minutes
[2016-10-12 15:23] VITALS: BP 113/61
[2016-10-13] MEDS ORDERED: LEVOTHYROXINE SODIUM 0.05 MG TABLET PO SCH (08:00)
== END 2016-10-12 15:51 | disposition home or self-care (01) | DRG 202 ==
LOC: ER 21:25 → UNDOADMIN 23:26 → EH 23:26 → 3N 10-10 01:48
PROVIDERS: ADMIT Family Medicine; ATTEND Family Medicine
DX: J45.901 Unspecified asthma with (acute) exacerbation (principal); J96.21 Acute and chronic respiratory failure with hypoxia; N39.0 Urinary tract infection, site not specified; E10.9 Type 1 diabetes mellitus without complications; E78.5 Hyperlipidemia, unspecified; E03.9 Hypothyroidism, unspecified; D69.6 Thrombocytopenia, unspecified; B95.4 Other streptococcus as the cause of diseases classified elsewhere; K74.60 Unspecified cirrhosis of liver; K21.9 Gastro-esophageal reflux disease without esophagitis; F31.9 Bipolar disorder, unspecified; Z79.82 Long term (current) use of aspirin; Z79.4 Long term (current) use of insulin; Z79.84 Long term (current) use of oral hypoglycemic drugs; Z79.51 Long term (current) use of inhaled steroids; Z79.899 Other long term (current) drug therapy; Z88.2 Allergy status to sulfonamides
CPT/HCPCS: 36415; 71010; 80048; 80076; 81001; 82803; 82962; 83735; 84132; 84443; 85025; 85610; 85730; 87040; 87086; 87088; 87493; 93005; 93010; 94640; 94660; 94799; 96365; 96366; 96375; 99285; J0696; J1815; J1885; J2930; J3475; J3490; J7030; J7620

== ENCOUNTER 2018-03-11 20:00 | Emergency (ER) | payer MEDICAID, OTHER ==
[2018-03-11] MEDS ORDERED: MAGNESIUM SULFATE/D5W 1 GM/100 ML RTUPB IV ONE ×2 (20:34→21:40)
[2018-03-11] MEDS ORDERED: IPRATROPIUM/ALBUTEROL 0.5-2.5 MG/3 ML AMPUL NEB ONE (20:34)
[2018-03-11] MEDS ORDERED: LIDOCAINE 1% INJ-PF (10 MG/ML) 30 ML SDV NEB ONE (20:38)
[2018-03-11 21:00] LABS: ABSOLUTE EOSINOPHILS # (AUTO) 0.1 10^3/uL (0.0-0.6); ABSOLUTE LYMPHOCYTES (AUTO) 0.8 10^3/uL (0.5-4.7); ABSOLUTE MONOCYTES (AUTO) 0.5 10^3/uL (0.1-1.4); ABSOLUTE NEUT (AUTO) 2.5 10^3/uL (1.7-8.2); BASOPHILS % (AUTO) 0.7 % (0-2); EOSINOPHILS % (AUTO) 2.7 % (0-6); HEMATOCRIT 40.1 % (36.0-47.0); HEMOGLOBIN 13.5 g/dL (12.0-15.5); LYMPHOCYTES % (AUTO) 21.4 % (13-45); MEAN CORPUSCULAR HEMOGLOBIN 29.7 pg (27.0-33.4); MEAN CORPUSCULAR HGB CONC 33.8 g/dL (32.0-36.0); MEAN CORPUSCULAR VOLUME 88 fl (80-97); MONOCYTES % (AUTO) 11.6 % (3-13); RED BLOOD COUNT 4.56 10^6/uL (3.72-5.28); RED CELL DISTRIBUTION WIDTH 12.8 % (11.5-14.0); SEGMENTED NEUTROPHILS % (AUTO) 63.6 % (42-78); TOTAL CELLS COUNTED % (AUTO) 100 %; WHITE BLOOD COUNT 3.9 10^3/uL (4.0-10.5)
[2018-03-11 21:14] LABS: ALANINE AMINOTRANSFERASE 34 U/L (9-52); ALBUMIN 4.2 g/dL (3.5-5.0); ALKALINE PHOSPHATASE 98 U/L (38-126); ANION GAP 9 (5-19); ASPARTATE AMINO TRANSFERASE 31 U/L (14-36); BILIRUBIN,DIRECT 0.2 mg/dL (0.0-0.4); BILIRUBIN,TOTAL 0.4 mg/dL (0.2-1.3); BLOOD UREA NITROGEN 14 mg/dL (7-20); CALCIUM 9.9 mg/dL (8.4-10.2); CARBON DIOXIDE 29 mmol/L (22-30); CHLORIDE 102 mmol/L (98-107); CREATINE KINASE 46 U/L (30-135); GLUCOSE 155 mg/dL (75-110); POTASSIUM 4.4 mmol/L (3.6-5.0); TOTAL PROTEIN 7.1 g/dL (6.3-8.2)
[2018-03-11 21:21] LABS: PLATELET COUNT 68 10^3/uL (150-450)
--- NOTE | 2018-03-11 21:29 | RADIOLOGY REPORT (SQ) ---
CLINICAL HISTORY: sob COMPARISON: April 11, 2015. 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 There is platelike atelectasis in the mid left lung. There is no pleural effusion. There is no pneumothorax. There are no acute osseous findings. IMPRESSION: Platelike atelectasis in the mid left lung.
[2018-03-11 21:31] LABS: CREATINE KINASE MB < 0.22 ng/mL (<4.55); TROPONIN I < 0.012 ng/mL
[2018-03-11] MEDS ORDERED: METHYLPREDNISOLONE INJ 125 MG/2 ML SDV IV ONE (21:31)
[2018-03-11] MEDS ORDERED: BENZONATATE 100 MG CAPSULE PO ONE (22:08)
[2018-03-11] MEDS ORDERED: PREDNISONE 20 MG TABLET PO ONE (22:09)
--- NOTE | 2018-03-11 22:28 | ER Document Report ---
ED General - General Chief Complaint: Shortness Of Breath Stated Complaint: SHORTNESS OF BREATH Time Seen by Provider: 03/11/18 20:31 TRAVEL OUTSIDE OF THE [place] IN LAST 30 DAYS: No - HPI Patient complains to provider of: Shortness of breath Notes: Patient here for evaluation of shortness of breath. Patient states cough with production ongoing for approximately 1 week. Patient states she was given steroids and recently finished an antibiotic approximately 10 days ago for sinus infection. Patient states cough has continued therefore came to the ER for further evaluation. Patient does have a history of asthma. Patient did have breathing treatments prior to arrival. Patient with audible wheezing upon my evaluation however no tachypnea patient denies any fevers chills chest pain nausea vomiting denies any abdominal pain. In the obvious distress to my evaluation - Related Data Allergies/Adverse Reactions: Sulfa (Sulfonamide Antibiotics) Allergy (Severe, Verified 10/09/16 22:05) Hives Past Medical History - Social History Smoking Status: Never Smoker Chew tobacco use (# tins/day): No Frequency of alcohol use: Rare Drug Abuse: None Family History: Reviewed & Not Pertinent Patient has suicidal ideation: No Patient has homicidal ideation: No - Past Medical History Cardiac Medical History: Reports: Hx Hypercholesterolemia Denies: Hx Atrial Fibrillation, Hx Congestive Heart Failure, Hx DVT, Hx Heart Attack, Hx Hypertension, Hx Pulmonary Embolism Pulmonary Medical History: Reports: Hx Asthma, Hx Bronchitis, Hx Pneumonia Denies: Hx Sleep Apnea Neurological Medical History: Reports: Hx Migraine. Denies: Hx Seizures Endocrine Medical History: Reports: Hx Diabetes Mellitus Type 1, Hx Diabetes Mellitus Type 2, Hx Hypothyroidism. Denies: Hx Hyperthyroidism Renal/ Medical History: Denies: Hx Peritoneal Dialysis Malignancy Medical History: Reports: Hx Breast Cancer - S/P partial mastectomy, with chemoradiation treatment, completed 2013 GI Medical History: Reports: Hx Cirrhosis - Uncertain etiology per patient., Hx Gastroesophageal Reflux Disease Musculoskeletal Medical History: Reports Hx Arthritis Psychiatric Medical History: Reports: Hx Bipolar Disorder, Hx Depression Infectious Medical History: Denies: Hx C-Diff, Hx MRSA Past Surgical History: Reports: Hx Hysterectomy, Hx Mastectomy - Partial right mastectomy, 2013, Hx Orthopedic Surgery - l hand. r foot surgeries, Hx Tonsillectomy - Immunizations Hx Diphtheria, Pertussis, Tetanus Vaccination: Yes - 2012 Review of Systems - Review of Systems Constitutional: No symptoms reported EENT: No symptoms reported Cardiovascular: No symptoms reported Respiratory: Cough, Short of breath, Wheezing Gastrointestinal: No symptoms reported Genitourinary: No symptoms reported Female Genitourinary: No symptoms reported Musculoskeletal: No symptoms reported Skin: No symptoms reported Hematologic/Lymphatic: No symptoms reported Neurological/Psychological: No symptoms reported -: Yes All other systems reviewed and negative Physical Exam - Vital signs Vitals: Temp Pulse Resp BP Pulse Ox 98.4 F 87 21 H 128/62 H 99 03/11/18 20:21 03/11/18 20:21 03/11/18 20:21 03/11/18 20:21 03/11/18 20:21 Interpretation: Normal - General General appearance: Appears well, Alert - HEENT Head: Normocephalic, Atraumatic Eyes: Normal Pupils: PERRL - Respiratory Respiratory status: No respiratory distress Chest status: Nontender Breath sounds: Wheezing - Coarse wheezing Chest palpation: Normal - Cardiovascular Rhythm: Regular Heart sounds: Normal auscultation Murmur: No - Abdominal Inspection: Normal Distension: No distension Bowel sounds: Normal Tenderness: Nontender Organomegaly: No organomegaly - Back Back: Normal, Nontender - Extremities General upper extremity: Normal inspection, Nontender, Normal color, Normal ROM , Normal temperature General lower extremity: Normal inspection, Nontender, Normal color, Normal ROM , Normal temperature, Normal weight bearing. No: Darcie's sign - Neurological Neuro grossly intact: Yes Cognition: Normal Orientation: AAOx4 [place] Coma Scale Eye Opening: Spontaneous [place] Coma Scale Verbal: Oriented [place] Coma Scale Motor: Obeys Commands [place] Coma Scale Total: 15 Speech: Normal Motor strength normal: LUE, RUE, LLE, RLE Sensory: Normal - Psychological Associated symptoms: Normal affect, Normal mood - Skin Skin Temperature: Warm Skin Moisture: Dry Skin Color: Normal Course - Re-evaluation Re-evalutation: 03/11/18 22:33 Left rotation to continue thrombocytopenia. Patient chest x-ray only showing atelectasis. Patient was given breathing treatments magnesium here patient with improvement of her wheezing continued to cough although some improvement of the cough was achieved with a lidocaine neb. Patient was able to ambulate around the ER with no signs of hypoxia. Likely viral bronchitis/asthma exacerbation. Patient will be discharged home follow-up primary care physician will treat the patient with albuterol Atrovent and prednisone - Vital Signs Vital signs: Temp Pulse Resp BP Pulse Ox 98.4 F 87 17 130/66 H 98 03/11/18 20:21 03/11/18 20:21 03/11/18 22:00 03/11/18 22:01 03/11/18 22:00 - Laboratory Result Diagrams: 03/11/18 20:45 03/11/18 20:45 Laboratory results interpreted by me: 03/11/18 03/11/18 20:45 20:45 WBC 3.9 L Plt Count 68 L Glucose 155 H Magnesium 1.1 L* Discharge - Discharge Clinical Impression: Bronchitis, Thrombocytopenia Condition: Good Disposition: HOME, SELF-CARE Instructions: Bronchitis With Bronchospasm (Wheezing) ([facility]) Additional Instructions: Chest x-ray today does not show any signs of pneumonia we recommend continue using your albuterol treatments at home 1 treatment every 4 hours. We will also start you on Atrovent 1 treatment with Atrovent twice a day You may use the lidocaine given to you here instilled 2mls into your nebulizer machine every 6 hours as needed for cough I also recommend trying the Tessalon Perles if he did receive cough relief with them I will give you a prescription that she may fill Please take steroids as prescribed Please follow-up with your doctor in 3-5 days Return to the ER if your symptoms worsen Please make sure you are drinking plenty of fluids to stay well-hydrated Prescriptions: Benzonatate [Tessalon Perle 100 mg Capsule] 100 mg PO Q8HP PRN #40 cap PRN Reason: Albuterol Sulfate [Ventolin 0.083% Neb 2.5 mg/3 mL Ampul] 2.5 mg NEB Q4 #60 vial.neb Ipratropium Gardiner [Atrovent 0.02% Neb 0.5 mg/2.5 ml Ampul] 0.5 mg NEB BID #60 vial.neb Prednisone [Deltasone] 60 mg PO DAILY #24 tablet
[2018-03-11 22:31] VITALS: BP 130/58
--- NOTE | 2018-03-12 07:49 | EKG REPORT ---
SEVERITY:- NORMAL ECG - SINUS RHYTHM : Confirmed by: Lali Molina MD 12-Mar-2018 07:48:54
== END 2018-03-11 22:31 | disposition home or self-care (01) ==
LOC: ER 20:00
DX: J40 Bronchitis, not specified as acute or chronic (principal); D47.3 Essential (hemorrhagic) thrombocythemia; R06.02 Shortness of breath; E78.00 Pure hypercholesterolemia, unspecified; Z88.2 Allergy status to sulfonamides; Z90.710 Acquired absence of both cervix and uterus
CPT/HCPCS: 93005; 94640 ×2; 99285; 96375; 96365; 36415; 82553; 82550; 83735; 85025; 80053; 84484; 71045; 93010; J3490; J2930; J3475; J7512; J7620

== ENCOUNTER 2018-06-17 12:22 | Emergency (ER) | payer MEDICAID, OTHER ==
--- NOTE | 2018-06-17 13:59 | ER Document Report ---
ED GI/ - General Chief Complaint: Urinary Frequency Stated Complaint: PAINFUL URINATION,LOW BACK PAIN Time Seen by Provider: 06/17/18 13:51 Mode of Arrival: Ambulatory Information source: Patient, [facility] Records Notes: 62-year-old female patient reports 2-day history of dysuria and frequency and bilateral flank pain. There is no fever. She states that she thinks she usually gets treated with Septra, but she also reports a sulfa allergy. Review of pharmacy records shows she has been treated with Cipro and nitrofurantoin in the last couple years but I cannot find any other antibiotics. TRAVEL OUTSIDE OF THE [place] IN LAST 30 DAYS: No - Related Data Allergies/Adverse Reactions: Sulfa (Sulfonamide Antibiotics) Allergy (Severe, Verified 06/17/18 12:28) Hives Past Medical History - General Information source: Patient, [facility] Records - Social History Smoking Status: Former Smoker Cigarette use (# per day): No - Quit 15 years ago Chew tobacco use (# tins/day): No Frequency of alcohol use: None - Quit 20 years ago Drug Abuse: None Lives with: Family Family History: Reviewed & Not Pertinent Patient has suicidal ideation: No Patient has homicidal ideation: No - Past Medical History Cardiac Medical History: Reports: Hx Hypercholesterolemia Pulmonary Medical History: Reports: Hx Asthma, Hx Bronchitis, Hx Pneumonia Neurological Medical History: Reports: Hx Migraine Endocrine Medical History: Reports: Hx Diabetes Mellitus Type 2, Hx Hypothyroidism Malignancy Medical History: Reports: Hx Breast Cancer - S/P partial mastectomy, with chemoradiation treatment, completed 2013 GI Medical History: Reports: Hx Cirrhosis - Uncertain etiology per patient., Hx Gastroesophageal Reflux Disease Musculoskeletal Medical History: Reports Hx Arthritis Psychiatric Medical History: Reports: Hx Bipolar Disorder, Hx Depression Past Surgical History: Reports: Hx Hysterectomy, Hx Mastectomy - Partial right mastectomy, 2013, Hx Orthopedic Surgery - l hand. r foot surgeries, Hx Tonsillectomy - Immunizations Hx Diphtheria, Pertussis, Tetanus Vaccination: Yes - 2012 Review of Systems - Review of Systems Constitutional: No symptoms reported EENT: No symptoms reported Cardiovascular: No symptoms reported Respiratory: No symptoms reported Gastrointestinal: No symptoms reported Genitourinary: Burning, Dysuria, Frequency, Flank pain Female Genitourinary: Post menopausal Musculoskeletal: No symptoms reported Skin: No symptoms reported Hematologic/Lymphatic: No symptoms reported Neurological/Psychological: No symptoms reported Physical Exam - Vital signs Vitals: Temp Pulse Resp BP Pulse Ox 97.5 F 88 16 116/56 L 98 06/17/18 12:38 06/17/18 12:38 06/17/18 12:38 06/17/18 12:38 06/17/18 12:38 - General General appearance: Appears well, Alert In distress: None - HEENT Head: Normocephalic, Atraumatic Eyes: Normal Pupils: PERRL - Respiratory Respiratory status: No respiratory distress Breath sounds: Normal - Cardiovascular Rhythm: Regular - Abdominal Inspection: Normal - Back Back: Normal - Extremities General upper extremity: Normal inspection General lower extremity: Normal inspection - Neurological Neuro grossly intact: Yes - Psychological Associated symptoms: Normal affect, Normal mood - Skin Skin Temperature: Warm Skin Moisture: Dry Skin Color: Normal Course - Vital Signs Vital signs: Temp Pulse Resp BP Pulse Ox 97.5 F 88 16 116/56 L 98 06/17/18 12:38 06/17/18 12:38 06/17/18 12:38 06/17/18 12:38 06/17/18 12:38 - Laboratory Laboratory results interpreted by me: 06/17/18 12:46 Urine Protein 30 H Urine Blood SMALL H Urine Nitrite POSITIVE H Ur Leukocyte Esterase LARGE H Discharge - Discharge Clinical Impression: Urinary tract infection Qualifiers: Urinary tract infection type: acute cystitis Hematuria presence: with hematuria Qualified Code(s): N30.01 - Acute cystitis with hematuria Condition: Stable Disposition: HOME, SELF-CARE Additional Instructions: Urinary Tract Infection Your evaluation indicates that you have a urinary tract infection. This is due to germs growing in the bladder. This is a common problem. This infection usually responds quickly to antibiotics. Your antibiotic should be taken exactly as prescribed. Drink plenty of fluids -- three to four quarts a day. Occasionally, a bladder anesthetic will be prescribed to help stop the feeling of urgency until the antibiotic has a chance to clear the infection. This may cause your urine to be dark orange. Certain urine infections require a culture. If the doctor obtained a culture, the results will be back in two days. You should call to see if a change in treatment is needed. A repeat urinalysis after you finish treatment is often recommended. The physician will let you know if further testing is required. Call the doctor if you develop fever, chills, flank pain, inability to urinate, or blood in the urine. Prescriptions: Cephalexin Monohydrate [Keflex 500 mg Capsule] 500 mg PO TID #15 capsule Phenazopyridine HCl [Pyridium 200 mg Tablet] 200 mg PO TID #10 tablet
[2018-06-17 15:08] LABS: APPEARANCE,URINE CLOUDY; BILIRUBIN,URINE NEGATIVE (NEGATIVE); COLOR,URINE YELLOW; GLUCOSE, URINE NEGATIVE (NEGATIVE); KETONES,URINE NEGATIVE (NEGATIVE); LEUKOCYTE ESTERASE,URINE LARGE (NEGATIVE); NITRITE,URINE POSITIVE (NEGATIVE); PROTEIN,URINE 30 mg/dL (NEGATIVE); URINE SPECIFIC GRAVITY 1.015; UROBILINOGEN,URINE NEGATIVE mg/dL (<2.0)
[2018-06-17 15:36] VITALS: BP 127/68
== END 2018-06-17 15:36 | disposition home or self-care (01) ==
LOC: ER 12:22
DX: N30.01 Acute cystitis with hematuria (principal); R30.0 Dysuria; R35.0 Frequency of micturition; R10.9 Unspecified abdominal pain; J45.909 Unspecified asthma, uncomplicated; Z88.2 Allergy status to sulfonamides; Z87.891 Personal history of nicotine dependence; Z85.3 Personal history of malignant neoplasm of breast; Z92.3 Personal history of irradiation; Z92.21 Personal history of antineoplastic chemotherapy
CPT/HCPCS: 81001; 87086; 87088; 87186; 99283

== ENCOUNTER → 2018-06-21 | Outpatient (CLI) | payer OTHER ==
[2018-06-21 14:21] LABS: CHOLESTEROL 99.04 mg/dL (0-200); TRIGLYCERIDES 114 mg/dL (<150)
[2018-06-21 14:31] LABS: DIRECT LDL 45 mg/dL (<100)
== END ==
LOC: OD 12:13
PROVIDERS: ATTEND Psychiatry & Neurology Psychiatry
DX: F31.4 Bipolar disorder, current episode depressed, severe, without psychotic features (principal); Z79.899 Other long term (current) drug therapy
CPT/HCPCS: 36415; 80061; 83036

== ENCOUNTER → 2018-06-24 | Outpatient (CLI) | payer OTHER ==
--- NOTE | 2018-06-24 16:02 | RADIOLOGY REPORT (SQ) ---
EXAM DESCRIPTION: CT ABD/PELVIS COMBO COMPLETED DATE/TIME: 06/24/2018 3:32 pm REASON FOR STUDY: R31.9 HEMATURIA, UNSPECIFIED R31.9 HEMATURIA, UNSPECIFIED COMPARISON: 02/19/2014 TECHNIQUE: CT scan of the abdomen and pelvis performed with and without intravenous contrast, and wi thout oral contrast. Contrasted imaging performed helical scanning technique and dynamic intravenous contrast injection. Images reviewed with lung, soft tissue, and bone windows. Reconstructed coronal a nd sagittal MPR images reviewed. Delayed images for evaluation of the urinary system also acquired. A ll images stored on PACS. All CT scanners at this facility use dose modulation, iterative reconstruction, and/or weight based d osing when appropriate to reduce radiation dose to as low as reasonably achievable (ALARA). [facility]: Dose Right [facility]: CareDose [facility]: Dose Right [facility]: Teradose 4D [facility]: [employer] CONTRAST TYPE AND DOSE: contrast/concentration: Isovue 350.00 mg/ml; Total Contrast Delivered: 94.0 ml; Total Saline Delivered: 71.0 ml RENAL FUNCTION: Creatinine 0.9 RADIATION DOSE: CT Rad equipment meets quality standard of care and radiation dose reduction techniq ues were employed. CTDIvol: 10.5 - 11.6 mGy. DLP: 1856 mGy-cm. . LIMITATIONS: None. FINDINGS: NON-CONTRASTED IMAGING: Cholelithiasis. POST-CONTRASTED IMAGING: LOWER CHEST: No significant findings. No nodules or infiltrates. LIVER: Margin is slightly lobulated. No mass. Recanalized umbilical vein. SPLEEN: Splenomegaly. PANCREAS: No masses. No significant calcifications. No adjacent inflammation or peripancreatic fluid collections. Pancreatic duct not dilated. GALLBLADDER: Cholelithiasis. ADRENAL GLANDS: No significant masses or asymmetry. RIGHT KIDNEY AND URETER: No solid masses. No significant calcifications. No hydronephrosis or hyd roureter. LEFT KIDNEY AND URETER: No solid masses. No significant calcifications. No hydronephrosis or hydr oureter. AORTA AND VESSELS: No aneurysm. No dissection. Renal arteries, SMA, celiac without stenosis. RETROPERITONEUM: No retroperitoneal adenopathy, hemorrhage or masses. BOWEL AND PERITONEAL CAVITY: Considerable stool is present. No obvious bowel mass or inflammation. APPENDIX: Not identified. PELVIS: No mass. No free fluid. Normal bladder. ABDOMINAL WALL: No masses. No hernias. BONES: No significant or acute findings. OTHER: No other significant finding. IMPRESSION: There is evidence of portal hypertension. There is slight lobulation of the margin of t he liver. There is splenomegaly. The umbilical vein is recanallized. There are no acute findings i n the abdomen or pelvis. Possible constipation. Cholelithiasis. TECHNICAL DOCUMENTATION: JOB ID: [id number] Quality ID # [id number]: Final reports with documentation of one or more dose reduction techniques (e.g., Au tomated exposure control, adjustment of the mA and/or kV according to patient size, use of iterative reconstruction technique) 2010 [employer]- All Rights Reserved Reading location - IP/workstation name: [email or web address]
== END ==
LOC: RAD 14:20
PROVIDERS: ATTEND Urology
DX: K80.80 Other cholelithiasis without obstruction (principal); R31.9 Hematuria, unspecified; K76.6 Portal hypertension; R16.1 Splenomegaly, not elsewhere classified
CPT/HCPCS: 74178; 82565

== ENCOUNTER → 2018-07-18 | Outpatient (CLI) | payer OTHER ==
[2018-07-18 13:03] LABS: ABSOLUTE LYMPHOCYTES (AUTO) 0.6 10^3/uL (0.5-4.7); ABSOLUTE MONOCYTES (AUTO) 0.2 10^3/uL (0.1-1.4); ABSOLUTE NEUT (AUTO) 1.4 10^3/uL (1.7-8.2); BASOPHILS % (AUTO) 0.2 % (0-2); EOSINOPHILS % (AUTO) 0.4 % (0-6); HEMATOCRIT 39.3 % (36.0-47.0); HEMOGLOBIN 13.2 g/dL (12.0-15.5); LYMPHOCYTES % (AUTO) 26.6 % (13-45); MEAN CORPUSCULAR HEMOGLOBIN 29.1 pg (27.0-33.4); MEAN CORPUSCULAR HGB CONC 33.6 g/dL (32.0-36.0); MEAN CORPUSCULAR VOLUME 87 fl (80-97); MONOCYTES % (AUTO) 8.3 % (3-13); RED BLOOD COUNT 4.54 10^6/uL (3.72-5.28); RED CELL DISTRIBUTION WIDTH 14.7 % (11.5-14.0); SEGMENTED NEUTROPHILS % (AUTO) 64.5 % (42-78); TOTAL CELLS COUNTED % (AUTO) 100 %; WHITE BLOOD COUNT 2.2 10^3/uL (4.0-10.5)
[2018-07-18 13:05] LABS: INTERNATIONAL RATION (INR) 1.18; PROTHROMBIN TIME 15.6 SEC (11.4-15.4)
[2018-07-18 13:20] LABS: ALANINE AMINOTRANSFERASE 36 U/L (9-52); ALBUMIN 3.7 g/dL (3.5-5.0); ALKALINE PHOSPHATASE 98 U/L (38-126); ANION GAP 6 (5-19); ASPARTATE AMINO TRANSFERASE 31 U/L (14-36); BILIRUBIN,DIRECT 0.3 mg/dL (0.0-0.4); BILIRUBIN,TOTAL 0.3 mg/dL (0.2-1.3); BLOOD UREA NITROGEN 11 mg/dL (7-20); CALCIUM 9.8 mg/dL (8.4-10.2); CARBON DIOXIDE 29 mmol/L (22-30); CHLORIDE 109 mmol/L (98-107); GLUCOSE 75 mg/dL (75-110); POTASSIUM 4.8 mmol/L (3.6-5.0); SODIUM 144.2 mmol/L (137-145); TOTAL PROTEIN 7.1 g/dL (6.3-8.2)
[2018-07-18 13:29] LABS: PLATELET COUNT 68 10^3/uL (150-450)
== END ==
LOC: OD 12:09
PROVIDERS: ATTEND Nurse Practitioner
DX: K74.60 Unspecified cirrhosis of liver (principal)
CPT/HCPCS: 36415; 80053; 82105; 85025; 85610

== ENCOUNTER 2018-10-16 18:53 | Emergency (ER) | payer OTHER ==
[2018-10-16 19:02] VITALS: BP 143/66
--- NOTE | 2018-10-16 19:23 | ER Document Report ---
HPI - HPI Time Seen by Provider: 10/16/18 19:06 Pain Level: 4 Notes: Patient is a 63-year-old female with a history of cirrhosis, mental health disorder, and diabetes who presents complaining of crush injury by a skillet to her right digit of the foot prior to arrival. Patient states that she is still able to ambulate without difficulty otherwise. She has noticed some bruising and swelling to the area. She has no other concerns or complaints. Pain does not radiate. Pain is described as sharp. Denies any headache, fever, URI, sore throat, chest pain, palpitations, syncope, cough, shortness of breath, wheeze, dyspnea, abdominal pain, nausea/vomiting/diarrhea, urinary retention, dysuria, hematuria, loss of control of bowel or bladder, numbness/tingling, muscle paralysis, or rash. - ROS Systems Reviewed and Negative: Yes All other systems reviewed and negative - REPRODUCTIVE Reproductive: DENIES: : Past Medical History - Social History Smoking Status: Never Smoker Family History: Reviewed & Not Pertinent - Past Medical History Cardiac Medical History: Reports: Hx Hypercholesterolemia Pulmonary Medical History: Reports: Hx Asthma, Hx Bronchitis, Hx Pneumonia Neurological Medical History: Reports: Hx Migraine Endocrine Medical History: Reports: Hx Diabetes Mellitus Type 1, Hx Diabetes Mellitus Type 2, Hx Hypothyroidism Renal/ Medical History: Denies: Hx Peritoneal Dialysis Malignancy Medical History: Reports: Hx Breast Cancer - S/P partial mastectomy, with chemoradiation treatment, completed 2013 GI Medical History: Reports: Hx Cirrhosis - Uncertain etiology per patient., Hx Gastroesophageal Reflux Disease Musculoskeletal Medical History: Reports Hx Arthritis Psychiatric Medical History: Reports: Hx Bipolar Disorder, Hx Depression Past Surgical History: Reports: Hx Hysterectomy, Hx Mastectomy - Partial right mastectomy, 2013, Hx Orthopedic Surgery - l hand. r foot surgeries, Hx Tonsillectomy - Immunizations Hx Diphtheria, Pertussis, Tetanus Vaccination: Yes - 2012 Vertical Provider Document - CONSTITUTIONAL Agree With Documented VS: Yes Notes: PHYSICAL EXAMINATION: GENERAL: Well-appearing, well-nourished and in no acute distress. LUNGS: Breath sounds clear to auscultation bilaterally and equal. No wheezes rales or rhonchi. HEART: Regular rate and rhythm without murmurs, rubs, gallops. Musculoskeletal: Rt foot/ankle: + ecchymosis and mild swelling 5th digit. No deformity. LROM to passive/active flexion of 5th toe. Strength 5+/5. N/V intact distal. + tenderness 5th toe. No bony tenderness of the foot otherwise or ankle. Achilles intact. Lis Franc maneuver neg. Anterior drawer neg. Extremities: No cyanosis, clubbing, or edema b/l. Peripheral pulses 2+. Capillary refill less than 3 seconds. NEUROLOGICAL: Normal speech, normal gait. Normal sensory, motor exams PSYCH: Normal mood, normal affect. SKIN: Warm, Dry, normal turgor, no rashes or lesions noted. - INFECTION CONTROL TRAVEL OUTSIDE OF THE [place] IN LAST 30 DAYS: No Course - Vital Signs Vital signs: Temp Pulse Resp BP Pulse Ox 98.5 F 67 14 143/66 H 98 10/16/18 19:01 10/16/18 19:01 10/16/18 19:01 10/16/18 19:01 10/16/18 19:01 Discharge - Discharge Clinical Impression: Right foot pain Condition: Stable Disposition: HOME, SELF-CARE Additional Instructions: Rest, Ice, Compression, Elevation Tylenol/ibuprofen as needed Light stretches daily Strength exercises as able Moist heat and massage may help F/u with your PCP in 3-5 days for a recheck Consider consult(s) with Orthopedics/physical therapy for ongoing/worsening symptoms Return to the ED with any worsening symptoms and/or development of fever, headache, chest pain, palpitations, syncope, shortness of breath, trouble breathing, abdominal pain, n/v/d, muscle weakness/paralysis, numbness/tingling, swelling, redness, or other worsening symptoms that are concerning to you. Prescriptions: Naproxen 500 mg PO BID #10 tablet Forms: Elevated Blood Pressure Referrals: MICHELLE MIRZA NP [NURSE PRACTITIONER] - Follow up as needed [facility] [Provider Group] - Follow up as needed
--- NOTE | 2018-10-16 19:38 | RADIOLOGY REPORT (SQ) ---
EXAM DESCRIPTION: FOOT RIGHT COMPLETE COMPLETED DATE/TIME: 10/16/2018 7:27 pm REASON FOR STUDY: rt foot pain s/p crush injury COMPARISON: None. NUMBER OF VIEWS: Three views. TECHNIQUE: AP, lateral and oblique radiographic images acquired of the right foot. LIMITATIONS: None. FINDINGS: MINERALIZATION: Normal. BONES: No acute fracture or dislocation. 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 No worrisome b one lesions. JOINTS: No effusions. SOFT TISSUES: No soft tissue swelling. No foreign body. OTHER: No other significant finding. IMPRESSION: No acute fracture or dislocation of the right foot. 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 TECHNICAL DOCUMENTATION: JOB ID: [id number] [employer]- All Rights Reserved Reading location - IP/workstation name: [email or web address]
== END 2018-10-16 19:50 | disposition home or self-care (01) ==
LOC: ER 18:53
DX: S90.121A Contusion of right lesser toe(s) without damage to nail, initial encounter (principal); W20.8XXA Other cause of strike by thrown, projected or falling object, initial encounter; E11.9 Type 2 diabetes mellitus without complications; J45.909 Unspecified asthma, uncomplicated; Z85.3 Personal history of malignant neoplasm of breast; Z92.21 Personal history of antineoplastic chemotherapy
CPT/HCPCS: 99283

== ENCOUNTER 2018-10-22 14:56 | Inpatient (IN) | payer OTHER ==
[2018-10-22] MEDS ORDERED: METHYLPREDNISOLONE INJ 125 MG/2 ML SDV ONE (15:02)
[2018-10-22] MEDS ORDERED: IPRATROPIUM/ALBUTEROL 0.5-2.5 MG/3 ML AMPUL NEB ONE ×2 (15:02→15:10)
[2018-10-22] MEDS ORDERED: METHYLPREDNISOLONE INJ 125 MG/2 ML SDV IV ONE (15:10)
[2018-10-22] MEDS: ALBUTEROL SULFATE 0.083% NEB 2.5 MG/3 ML AMPUL NEB SCH ×2 (15:15→15:31)
--- NOTE | 2018-10-22 15:22 | ER Document Report ---
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 She denies any and all chest pain, calf pain or leg swelling, fevers or vomiting. History of asthma. Patient has not smoked in greater than 20 years. No history of COPD. Patient has been admitted and intubated for asthma exacerbations in the past. She states that she wanted to "come in early". ROS: See HPI All other review of systems reviewed and otherwise negative Reviewed vital signs and nursing note as charted by RN. PHYSICAL EXAM: CONSTITUTIONAL: Alert and oriented and responds appropriately to questions. Obvious tachypnea HEAD: Normocephalic; atraumatic EYES: PERRL; Conjunctivae clear, sclerae non-icteric ENT: Normal nose; minimal bilateral nonpurulent nasal rhinorrhea; moist mucous membranes; pharynx without lesions noted NECK: Supple without meningismus; non-tender; no cervical lymphadenopathy, no masses CARD: Regular rate and rhythm; no murmurs; symmetric distal pulses RESP: Tachypnea with bilateral end expiratory wheezing without rales or rhonchi ABD/GI: Normal bowel sounds; non-distended; soft, non-tender; no palpable organomegaly or masses BACK: The back appears normal and is non-tender to palpation EXT: Normal ROM in all joints; non-tender to palpation; no edema SKIN: No acute lesions noted NEURO: CN 2-12 intact; 5/5 bilateral upper and lower extremity strength with sensation intact to light touch PSYCH: The patient's mood and manner are appropriate. Grooming and personal hygiene are appropriate. TRAVEL OUTSIDE OF THE [place] IN LAST 30 DAYS: No - Related Data Allergies/Adverse Reactions: Sulfa (Sulfonamide Antibiotics) Allergy (Severe, Verified 10/22/18 14:56) Hives Past Medical History - Social History Smoking Status: Former Smoker Family History: Reviewed & Not Pertinent - Past Medical History Cardiac Medical History: Reports: Hx Hypercholesterolemia Pulmonary Medical History: Reports: Hx Asthma, Hx Bronchitis, Hx Pneumonia Neurological Medical History: Reports: Hx Migraine Endocrine Medical History: Reports: Hx Diabetes Mellitus Type 1, Hx Diabetes Mellitus Type 2, Hx Hypothyroidism Renal/ Medical History: Denies: Hx Peritoneal Dialysis Malignancy Medical History: Reports: Hx Breast Cancer - S/P partial mastectomy, with chemoradiation treatment, completed 2013 GI Medical History: Reports: Hx Cirrhosis - Uncertain etiology per patient., Hx Gastroesophageal Reflux Disease Musculoskeletal Medical History: Reports Hx Arthritis Psychiatric Medical History: Reports: Hx Bipolar Disorder, Hx Depression Past Surgical History: Reports: Hx Hysterectomy, Hx Mastectomy - Partial right mastectomy, 2013, Hx Orthopedic Surgery - l hand. r foot surgeries, Hx Tonsillectomy - Immunizations Hx Diphtheria, Pertussis, Tetanus Vaccination: Yes - 2012 Physical Exam - Vital signs Vitals: Temp Pulse Resp BP Pulse Ox 97.9 F 87 28 H 146/69 H 94 10/22/18 15:05 10/22/18 15:05 10/22/18 15:05 10/22/18 15:05 10/22/18 15:05 Course - Re-evaluation Re-evalutation: 10/22/18 15:21 Given the history and physical examination we will provide duo nebulizers, steroids, Solu-Medrol, magnesium, basic labs, portable x-ray of the chest, and reassess. History of asthma in the past. Wheezing on exam. Patient has no calf pain, leg swelling, or chest pain. I do believe ACS, PE, and dissection to be unlikely. Given the patient's history of nonalcoholic cirrhosis, I will order coagulation profile and reassess. 10/22/18 16:01 Labs as recorded. Wheezing is improved. Patient feels much improved. X-ray of the chest shows no obvious cardiomegaly, infiltrates, pleural effusions, or increased interstitial lung markings. Magnesium has also infused. Patient has received steroids as well as 3 duo nebulizers. We will continue to monitor. 10/22/18 17:03 Labs and x-ray as recorded. Patient's wheezing has improved but is still present. Slightly increasing. Still satting well and speaking in sentences. I will provide another duo nebulizer and an ABG. Patient will be admitted for observation for further nebulizers and reassessments. - Vital Signs Vital signs: Temp Pulse Resp BP Pulse Ox 97.9 F 87 28 H 146/69 H 94 10/22/18 15:05 10/22/18 15:05 10/22/18 15:05 10/22/18 15:05 10/22/18 15:05 - Laboratory Result Diagrams: 10/22/18 15:10 10/22/18 15:10 Laboratory results interpreted by me: 10/22/18 10/22/18 10/22/18 15:10 15:10 15:10 RDW 14.2 H Plt Count 85 L PT 15.6 H Est GFR (Non-Af Amer) 55 L Glucose 193 H AST 45 H Critical Care Note - Critical Care Note Total time excluding time spent on procedures (mins): 35 Discharge - Discharge Clinical Impression: Acute asthma Condition: Fair Disposition: ADMITTED OBSERVATION Admitting Provider: Cely (Hospitalist) Unit Admitted: Telemetry Referrals: YANICK VASQUES DO [Primary Care Provider] - Follow up as needed
[2018-10-22 15:28] LABS: INTERNATIONAL RATION (INR) 1.23; PROTHROMBIN TIME 15.6 SEC (11.4-15.4)
[2018-10-22 15:29] LABS: ABSOLUTE EOSINOPHILS # (AUTO) 0.3 10^3/uL (0.0-0.6); ABSOLUTE LYMPHOCYTES (AUTO) 1.4 10^3/uL (0.5-4.7); ABSOLUTE MONOCYTES (AUTO) 0.7 10^3/uL (0.1-1.4); ABSOLUTE NEUT (AUTO) 5.7 10^3/uL (1.7-8.2); BASOPHILS % (AUTO) 0.3 % (0-2); EOSINOPHILS % (AUTO) 3.3 % (0-6); HEMATOCRIT 43.2 % (36.0-47.0); HEMOGLOBIN 14.6 g/dL (12.0-15.5); LYMPHOCYTES % (AUTO) 17.1 % (13-45); MEAN CORPUSCULAR HEMOGLOBIN 28.9 pg (27.0-33.4); MEAN CORPUSCULAR HGB CONC 33.9 g/dL (32.0-36.0); MEAN CORPUSCULAR VOLUME 86 fl (80-97); MONOCYTES % (AUTO) 8.9 % (3-13); RED BLOOD COUNT 5.05 10^6/uL (3.72-5.28); RED CELL DISTRIBUTION WIDTH 14.2 % (11.5-14.0); SEGMENTED NEUTROPHILS % (AUTO) 70.4 % (42-78); TOTAL CELLS COUNTED % (AUTO) 100 %; WHITE BLOOD COUNT 8.1 10^3/uL (4.0-10.5)
[2018-10-22] MEDS: MAGNESIUM SULFATE/D5W 1 GM/100 ML RTUPB IV SCH ×2 (15:31→15:43)
[2018-10-22] MEDS: IPRATROPIUM/ALBUTEROL 0.5-2.5 MG/3 ML AMPUL NEB SCH ×2 (15:33→16:33)
--- NOTE | 2018-10-22 15:38 | RADIOLOGY REPORT (SQ) ---
EXAM DESCRIPTION: CHEST SINGLE VIEW COMPLETED DATE/TIME: 10/22/2018 3:30 pm REASON FOR STUDY: 17; wheezing COMPARISON: 03/11/2018 EXAM PARAMETERS: NUMBER OF VIEWS: One view. TECHNIQUE: Single frontal radiographic view of the chest acquired. RADIATION DOSE: NA LIMITATIONS: None. FINDINGS: LUNGS AND PLEURA: No opacities, masses or pneumothorax. No pleural effusion. MEDIASTINUM AND HILAR STRUCTURES: No masses. Contour normal. HEART AND VASCULAR STRUCTURES: Heart normal in size. Normal vasculature. BONES: No acute findings. HARDWARE: None in the chest. OTHER: No other significant finding. IMPRESSION: NO ACUTE RADIOGRAPHIC FINDING IN THE CHEST. TECHNICAL DOCUMENTATION: JOB ID: [id number] [employer]- All Rights Reserved Reading location - IP/workstation name: [email or web address]
[2018-10-22 15:40] LABS: ALANINE AMINOTRANSFERASE 34 U/L (9-52); ALBUMIN 4.4 g/dL (3.5-5.0); ALKALINE PHOSPHATASE 94 U/L (38-126); ANION GAP 11 (5-19); ASPARTATE AMINO TRANSFERASE 45 U/L (14-36); BILIRUBIN,DIRECT 0.4 mg/dL (0.0-0.4); BILIRUBIN,TOTAL 1.1 mg/dL (0.2-1.3); BLOOD UREA NITROGEN 18 mg/dL (7-20); CALCIUM 9.3 mg/dL (8.4-10.2); CARBON DIOXIDE 24 mmol/L (22-30); CHLORIDE 103 mmol/L (98-107); GLUCOSE 193 mg/dL (75-110); POTASSIUM 4.5 mmol/L (3.6-5.0); TOTAL PROTEIN 7.5 g/dL (6.3-8.2)
[2018-10-22 15:51] LABS: PLATELET COUNT 85 10^3/uL (150-450)
[2018-10-22] MEDS ORDERED: IPRATROPIUM/ALBUTEROL 0.5-2.5 MG/3 ML AMPUL NEB SCH (17:00)
[2018-10-22] MEDS ORDERED: MAGNESIUM HYDROXIDE SUSP 30 ML UDCUP PO PRN (17:42)
[2018-10-22] MEDS ORDERED: ONDANSETRON 4 MG TAB.RAPDIS PO PRN (17:42)
[2018-10-22] MEDS ORDERED: DEXTROSE 50%-WATER 25 GM/50 ML DISP.SYRIN IV PRN ×2 (18:06)
[2018-10-22] MEDS ORDERED: DEXTROSE 40% GEL 15 GM TUBE PO PRN ×2 (18:06)
[2018-10-22] MEDS ORDERED: GLUCAGON,HUMAN RECOMB 1 MG INJ IM PRN (18:06)
--- NOTE | 2018-10-22 18:09 | Progress Note Acknowledgement ---
Progress Note Acknowledgement Progess Note Acknowledgement: I, the undersigned member of the medical staff with appropriate privileges and with supervisory authority over [ PAC], a dependent practice allied health professional, acknowledge that I have reviewed the progress notes entered on this patient, and in my professional judgment believe that the assessment made and/or any care evidenced was appropriate
[2018-10-22 18:12] LABS: ARTERIAL BLOOD BASE EXCESS -0.6 mmol/L; ARTERIAL BLOOD H2CO3 1.04 mmol/L (1.05-1.35); ARTERIAL BLOOD O2 SATURATION 90.5 % (94-98); ARTERIAL BLOOD PCO2 34.7 mmHg (35-45); ARTERIAL BLOOD PH 7.44 (7.35-7.45); ARTERIAL BLOOD PO2 56.2 mmHg (80-100); ARTERIAL BLOOD TOTAL CO2 24.1 mmol/L (21-25)
[2018-10-22 18:14] LABS: ARTERIAL BLOOD FIO2 ROOM AIR
--- NOTE | 2018-10-22 18:18 | PDOC H&P ---
History of Present Illness Admission Date/PCP: 10/22/18 17:20 DO dana TOMPKINS Patient complains of: Coughing and acute shortness of breath x24 hours History of Present Illness: IGOR MCCULLOUGH is a 63 year old female who comes in with a 1 day history of acute shortness of breath and coughing. Patient states she has a history of COPD and yesterday she started coughing and wheezing. Patient states that she has been using her nebulizer about every 2 hours with no relief. Patient denies fever chills sweats or vomiting. 4 months ago the patient was here in the hospital was intubated, patient was in the hospital for 3 days before discharge home. Past Medical History Cardiac Medical History: Reports: Hyperlipidema Pulmonary Medical History: Reports: Asthma, Bronchitis, Pneumonia Neurological Medical History: Reports: Migraine Endocrine Medical History: Reports: Diabetes Mellitus Type 1, Diabetes Mellitus Type 2, Hypothyroidism Malignancy Medical History: Reports: Breast Cancer - S/P partial mastectomy, with chemoradiation treatment, completed 2013 GI Medical History: Reports: Cirrhosis - Uncertain etiology per patient., Gastroesophageal Reflux Disease Musculoskeltal Medical History: Reports: Arthritis Psychiatric Medical History: Reports: Bipolar Disorder, Depression Hematology: Reports: Anemia - Currently Past Surgical History Past Surgical History: Reports: Hysterectomy, Mastectomy - Partial right mastectomy, 2013, Orthopedic Surgery - l hand. r foot surgeries, Tonsillectomy Social History Smoking Status: Former Smoker Frequency of Alcohol Use: None Hx Recreational Drug Use: No Drugs: None Hx Prescription Drug Abuse: No Family History Family History: Reviewed & Not Pertinent Parental Family History Reviewed: No Children Family History Reviewed: No Sibling(s) Family History Reviewed.: No Medication/Allergy Home Medications: Trazodone HCl [Desyrel] 300 mg PO HSP PRN 10/10/16 Acyclovir [Acyclovir 400 mg Tablet] 400 mg PO ASDIR PRN 10/11/16 Albiglutide [Tanzeum] 30 mg INJ FR@1000 10/11/16 Albuterol Sulfate [Proair HFA] 2 puff IH Q4HP PRN 10/11/16 Aspirin [Aspirin EC] 81 mg PO DAILY 10/11/16 Celecoxib [Celebrex 200 mg Capsule] 200 mg PO Q12 10/11/16 Cetirizine HCl [Zyrtec 10 mg Tablet] 10 mg PO DAILYP PRN 10/11/16 Donepezil HCl [Aricept] 10 mg PO DAILY 10/11/16 Fenofibrate Nanocrystallized [Tricor 145 mg Tablet] 145 mg PO DAILY 10/11/16 Fluticasone/Salmeterol [Advair 100-50 Diskus 28 Dose] 1 puff IH Q12 10/11/16 Hydroxyzine HCl [Atarax 25 mg Tablet] 25 mg PO HSP PRN 10/11/16 Insulin Aspart [Novolog Insulin (Aspart) 100 unit/mL] 0 unit SQ MEALS PRN 10/11/16 Insulin Glargine,Hum.rec.anlog [Lantus Solostar] 90 units SQ QHS 10/11/16 Ipratropium/Albuterol Sulfate [Iprat-Albut 0.5-3(2.5) mg/3 ml] 3 ml NEB RTQ4HP PRN 10/11/16 Lamotrigine [Lamictal] 200 mg PO DAILY 10/11/16 Levothyroxine Sodium [Synthroid 0.05 mg Tablet] 50 mcg PO QAM 10/11/16 Lorazepam [Ativan 1 mg Tablet] 1 mg PO Q12HP PRN 10/11/16 Metformin HCl [Glucophage] 1,000 mg PO BID 10/11/16 Montelukast Sodium [Singulair 10 mg Tablet] 10 mg PO QPM 10/11/16 Pantoprazole Sodium [Protonix] 40 mg PO DAILY 10/11/16 Pnv,Calcium 72/Iron/Folic Acid [ Plus Tablet] 1 tab PO DAILY 10/11/16 Pregabalin [Lyrica 100 mg Capsule] 100 mg PO Q8 10/11/16 Rosuvastatin Calcium [Crestor 20 mg Tablet] 20 mg PO DAILY 10/11/16 Tolterodine Tartrate [Detrol LA] 4 mg PO DAILY 10/11/16 Ziprasidone HCl [Geodon 60 mg Capsule] 60 mg PO DAILY 10/11/16 Levofloxacin [Levaquin 750 mg Tablet] 750 mg PO DAILY@1400 #5 tablet 10/12/16 Prednisone [Sterapred Ds] 1 pkg PO ASDIR PRN 12 Days tab.ds.pk 10/12/16 Albuterol Sulfate [Ventolin 0.083% Neb 2.5 mg/3 mL Ampul] 2.5 mg NEB Q4 #60 vial.[facility] 03/11/18 Benzonatate [Tessalon Perle 100 mg Capsule] 100 mg PO Q8HP PRN #40 cap 03/11/18 Ipratropium [place]ons [Atrovent 0.02% Neb 0.5 mg/2.5 ml Ampul] 0.5 mg NEB BID #60 vial.[facility] 03/11/18 Prednisone [Deltasone] 60 mg PO DAILY #24 tablet 03/11/18 Cephalexin Monohydrate [Keflex 500 mg Capsule] 500 mg PO TID #15 capsule 06/17/18 Phenazopyridine HCl [Pyridium 200 mg Tablet] 200 mg PO TID #10 tablet 06/17/18 Naproxen 500 mg PO BID #10 tablet 10/16/18 Allergies/Adverse Reactions: Sulfa (Sulfonamide Antibiotics) Allergy (Severe, Verified 10/22/18 14:56) Hives Review of Systems Constitutional: ABSENT: chills, fever(s), headache(s), weight gain, weight loss Ears: ABSENT: hearing changes Cardiovascular: ABSENT: chest pain, dyspnea on exertion, edema, orthropnea, palpitations Respiratory: PRESENT: dyspnea Gastrointestinal: ABSENT: abdominal pain, constipation, diarrhea, hematemesis, hematochezia, nausea, vomiting Musculoskeletal: ABSENT: joint swelling Neurological: ABSENT: abnormal gait, abnormal speech, confusion, dizziness, focal weakness, syncope Psychiatric: ABSENT: anxiety, depression, homidical ideation, suicidal ideation Physical Exam Vital Signs: Temp Pulse Resp BP Pulse Ox 97.9 F 87 31 H 137/85 H 94 10/22/18 15:05 10/22/18 15:05 10/22/18 17:03 10/22/18 17:03 10/22/18 17:03 Intake & Output 10/21/18 10/22/18 10/23/18 06:59 06:59 06:59 Intake Total 120 Balance 120 Weight 78.8 kg General appearance: PRESENT: mild distress Head exam: PRESENT: atraumatic, normocephalic Eye exam: PRESENT: conjunctiva pink, EOMI, PERRLA. ABSENT: scleral icterus Mouth exam: PRESENT: moist, tongue midline Respiratory exam: PRESENT: clear to auscultation ravinder, retraction, tachypnea, whe ezes. ABSENT: rales, rhonchi Cardiovascular exam: PRESENT: RRR. ABSENT: diastolic murmur, rubs, systolic murmur GI/Abdominal exam: PRESENT: normal bowel sounds, soft. ABSENT: distended, guarding, mass, organolmegaly, rebound, tenderness Neurological exam: PRESENT: alert, awake, oriented to person, oriented to place, oriented to time, oriented to situation, CN II-XII grossly intact. ABSENT: motor sensory deficit Psychiatric exam: PRESENT: appropriate affect, normal mood. ABSENT: homicidal ideation, suicidal ideation Results Laboratory Results: 10/22/18 15:10 10/22/18 15:10 10/22/18 10/22/18 15:10 15:10 WBC 8.1 RBC 5.05 Hgb 14.6 Hct 43.2 MCV 86 MCH 28.9 MCHC 33.9 RDW 14.2 H Plt Count 85 L Seg Neutrophils % 70.4 Lymphocytes % 17.1 Monocytes % 8.9 Eosinophils % 3.3 Basophils % 0.3 Absolute Neutrophils 5.7 Absolute Lymphocytes 1.4 Absolute Monocytes 0.7 Absolute Eosinophils 0.3 Absolute Basophils 0.0 Sodium 137.7 Potassium 4.5 Chloride 103 Carbon Dioxide 24 Anion Gap 11 BUN 18 Creatinine 1.01 Est GFR ( Amer) > 60 Est GFR (Non-Af Amer) 55 L Glucose 193 H Calcium 9.3 Total Bilirubin 1.1 AST 45 H ALT 34 Alkaline Phosphatase 94 Total Protein 7.5 Albumin 4.4 Impressions: Chest X-Ray 10/22/18 15:19 IMPRESSION: NO ACUTE RADIOGRAPHIC FINDING IN THE CHEST. Assessment and Plan - Diagnosis (2) Diabetes mellitus type 1 Qualifiers: Diabetes mellitus complication status: without complication Qualified Code(s): E10.9 - Type 1 diabetes mellitus without complications Is this a current diagnosis for this admission?: Yes Plan: 10/22/2018 put patient on her normal insulin and as well as a sliding scale, diabetic diet. (3) GERD (gastroesophageal reflux disease) Is this a current diagnosis for this admission?: Yes Plan: 10/22/2018 we will start patient on prophylactic Pepcid (4) Hypothyroidism Qualifiers: Hypothyroidism type: unspecified Qualified Code(s): E03.9 - Hypothyroidism, unspecified Is this a current diagnosis for this admission?: Yes Plan: 10/22/2018 we will maintain patient on her Synthroid dose check a TSH - Time Time Spent with patient: 35 or more minutes
[2018-10-22] MEDS ORDERED: LORAZEPAM 1 MG TABLET PO PRN (18:37)
[2018-10-22] MEDS ORDERED: ZIPRASIDONE HCL 60 MG CAPSULE PO ONE (19:00)
[2018-10-22] MEDS ORDERED: LAMOTRIGINE 100 MG TABLET PO ONE (19:00)
[2018-10-22 20:02] LABS: INTERNATIONAL RATION (INR) 1.27
[2018-10-22 20:03] LABS: PARTIAL THROMBOPLASTIN TIME 34.7 SEC (23.5-35.8)
[2018-10-22 20:12] LABS: ALANINE AMINOTRANSFERASE 42 U/L (9-52); ALBUMIN 4.1 g/dL (3.5-5.0); ALKALINE PHOSPHATASE 104 U/L (38-126); ASPARTATE AMINO TRANSFERASE 36 U/L (14-36); BILIRUBIN,DIRECT 0.3 mg/dL (0.0-0.4); BILIRUBIN,TOTAL 0.7 mg/dL (0.2-1.3)
[2018-10-22] MEDS ORDERED: INSULIN GLARGINE,HUM.REC.ANLOG 1,000 UNIT/10 ML VIAL (PYX) SUBCUT ONE (22:19)
[2018-10-22] MEDS: TRAZODONE HCL 50 MG TABLET PO SCH (22:24)
[2018-10-22] MEDS: INSULIN GLARGINE,HUM.REC.ANLOG 1,000 UNIT/10 ML VIAL SUBCUT SCH (22:25)
[2018-10-22] MEDS: FAMOTIDINE 20 MG TABLET PO SCH (22:25)
[2018-10-22] MEDS: METHYLPREDNISOLONE INJ 40 MG/1 ML SDV IV SCH (22:25)
[2018-10-22] MEDS: MONTELUKAST SODIUM 10 MG TABLET PO SCH (22:25)
[2018-10-22 23:13] LABS: APPEARANCE,URINE CLEAR; BILIRUBIN,URINE NEGATIVE (NEGATIVE); COLOR,URINE STRAW; GLUCOSE, URINE NEGATIVE (NEGATIVE); KETONES,URINE NEGATIVE (NEGATIVE); LEUKOCYTE ESTERASE,URINE NEGATIVE (NEGATIVE); NITRITE,URINE NEGATIVE (NEGATIVE); PROTEIN,URINE NEGATIVE (NEGATIVE); URINE SPECIFIC GRAVITY 1.005; UROBILINOGEN,URINE NEGATIVE mg/dL (<2.0)
[2018-10-23 05:02] LABS: ABSOLUTE LYMPHOCYTES (AUTO) 0.6 10^3/uL (0.5-4.7); ABSOLUTE MONOCYTES (AUTO) 0.1 10^3/uL (0.1-1.4); ABSOLUTE NEUT (AUTO) 3.4 10^3/uL (1.7-8.2); BASOPHILS % (AUTO) 0.1 % (0-2); EOSINOPHILS % (AUTO) 0.2 % (0-6); HEMATOCRIT 38.2 % (36.0-47.0); HEMOGLOBIN 12.9 g/dL (12.0-15.5); LYMPHOCYTES % (AUTO) 13.6 % (13-45); MEAN CORPUSCULAR HGB CONC 33.9 g/dL (32.0-36.0); MEAN CORPUSCULAR VOLUME 85 fl (80-97); MONOCYTES % (AUTO) 2.5 % (3-13); RED BLOOD COUNT 4.47 10^6/uL (3.72-5.28); RED CELL DISTRIBUTION WIDTH 14.3 % (11.5-14.0); SEGMENTED NEUTROPHILS % (AUTO) 83.6 % (42-78); TOTAL CELLS COUNTED % (AUTO) 100 %; WHITE BLOOD COUNT 4.1 10^3/uL (4.0-10.5)
[2018-10-23 05:21] LABS: ANION GAP 10 (5-19); BLOOD UREA NITROGEN 19 mg/dL (7-20); CARBON DIOXIDE 23 mmol/L (22-30); CHLORIDE 103 mmol/L (98-107); CHOLESTEROL 81.01 mg/dL (0-200); GLUCOSE 335 mg/dL (75-110); PHOSPHORUS 2.7 mg/dL (2.5-4.5); POTASSIUM 4.5 mmol/L (3.6-5.0); TRIGLYCERIDES 55 mg/dL (<150)
[2018-10-23 05:25] LABS: PLATELET COUNT 58 10^3/uL (150-450)
[2018-10-23 05:31] LABS: DIRECT LDL 41 mg/dL (<100)
[2018-10-23] MEDS: LEVOTHYROXINE SODIUM 0.05 MG TABLET PO SCH (05:50)
[2018-10-23] MEDS: METHYLPREDNISOLONE INJ 40 MG/1 ML SDV IV SCH ×3 (05:50→22:28)
[2018-10-23] MEDS ORDERED: INSULIN LISPRO 100 UNIT/ML 3 ML VIAL SUBCUT SCH (08:00)
[2018-10-23] MEDS: METFORMIN HCL 500 MG TABLET PO SCH ×2 (08:03→17:55)
[2018-10-23] MEDS ORDERED: ENOXAPARIN SODIUM INJ 40 MG/0.4 ML DISP.SYRIN SUBCUT SCH (10:00)
[2018-10-23 11:06] LABS: ARTERIAL BLOOD BASE EXCESS -0.9 mmol/L; ARTERIAL BLOOD HCO3 23.8 mmol/L (20-24); ARTERIAL BLOOD O2 SATURATION 91.3 % (94-98); ARTERIAL BLOOD PCO2 39.8 mmHg (35-45); ARTERIAL BLOOD PO2 60.7 mmHg (80-100)
[2018-10-23 11:07] LABS: ARTERIAL BLOOD FIO2 2L
[2018-10-23] MEDS: CETIRIZINE 10 MG TABLET PO SCH (11:21)
[2018-10-23] MEDS: PREGABALIN 100 MG CAPSULE PO SCH ×3 (11:22→17:55)
[2018-10-23] MEDS: AZITHROMYCIN 250 MG TABLET PO SCH (11:22)
[2018-10-23] MEDS: DOCUSATE SODIUM 100 MG CAPSULE PO SCH (11:22)
[2018-10-23] MEDS: FENOFIBRATE NANOCRYSTALLIZED 145 MG TABLET PO SCH (11:22)
[2018-10-23] MEDS: FAMOTIDINE 20 MG TABLET PO SCH ×2 (11:22→22:28)
[2018-10-23] MEDS: IPRATROPIUM/ALBUTEROL 0.5-2.5 MG/3 ML AMPUL NEB PRN (14:00)
[2018-10-23] MEDS: FLUTICASONE NASAL SPRAY 50 MCG/SPRY 120 SPRAY/16 GM NASL PRN (17:53)
[2018-10-23] MEDS: INSULIN LISPRO 100 UNIT/ML 3 ML VIAL SUBCUT SCH ×2 (17:55→22:28)
[2018-10-23] MEDS: INSULIN GLARGINE,HUM.REC.ANLOG 1,000 UNIT/10 ML VIAL SUBCUT SCH (22:27)
[2018-10-23] MEDS: MONTELUKAST SODIUM 10 MG TABLET PO SCH (22:28)
[2018-10-23] MEDS: TRAZODONE HCL 50 MG TABLET PO SCH (22:28)
[2018-10-24] MEDS: METHYLPREDNISOLONE INJ 40 MG/1 ML SDV IV SCH ×3 (05:50→22:06)
[2018-10-24] MEDS: LEVOTHYROXINE SODIUM 0.05 MG TABLET PO SCH (05:50)
[2018-10-24 07:02] LABS: ABSOLUTE LYMPHOCYTES (AUTO) 0.8 10^3/uL (0.5-4.7); ABSOLUTE MONOCYTES (AUTO) 0.3 10^3/uL (0.1-1.4); ABSOLUTE NEUT (AUTO) 4.5 10^3/uL (1.7-8.2); EOSINOPHILS % (AUTO) 0.1 % (0-6); HEMATOCRIT 38.3 % (36.0-47.0); LYMPHOCYTES % (AUTO) 13.7 % (13-45); MEAN CORPUSCULAR HEMOGLOBIN 29.1 pg (27.0-33.4); MEAN CORPUSCULAR VOLUME 86 fl (80-97); MONOCYTES % (AUTO) 5.9 % (3-13); RED BLOOD COUNT 4.48 10^6/uL (3.72-5.28); SEGMENTED NEUTROPHILS % (AUTO) 80.3 % (42-78); TOTAL CELLS COUNTED % (AUTO) 100 %; WHITE BLOOD COUNT 5.6 10^3/uL (4.0-10.5)
[2018-10-24 07:16] LABS: ANION GAP 8 (5-19); BLOOD UREA NITROGEN 22 mg/dL (7-20); CARBON DIOXIDE 25 mmol/L (22-30); CHLORIDE 107 mmol/L (98-107); GLUCOSE 161 mg/dL (75-110); PHOSPHORUS 3.3 mg/dL (2.5-4.5); POTASSIUM 4.9 mmol/L (3.6-5.0)
[2018-10-24 07:53] LABS: PLATELET COUNT 65 10^3/uL (150-450)
[2018-10-24] MEDS: METFORMIN HCL 500 MG TABLET PO SCH ×2 (08:39→21:57)
[2018-10-24] MEDS: INSULIN LISPRO 100 UNIT/ML 3 ML VIAL SUBCUT SCH ×4 (09:45→22:06)
--- NOTE | 2018-10-24 09:53 | PDOC PROGRESS REPORT ---
Subjective Progress Note for:: 10/24/18 Subjective:: 10/23/2018 patient was put on BiPAP pretty much as soon as she got up on the floor in the emergency room without the BiPAP patient becomes more tachypneic. She is able to rest comfortably with no shortness of breath with the BiPAP on. Labs from today are pending including an ABG. Glucose levels are running about 200 this morning most recent is 239. Zithromax was started today as a prophylactic. 10/24/2018 patient is in bed with her BiPAP on. He was taken off this morning that she got up and walked in the hallway and had to be put back on it I was under the impression she was getting scheduled neb treatments but turns out they were just as needed. No changes ordered to every 4 hours nebs she is on steroids every 8 and she was placed on Zithromax yesterday. Admission chest x- ray was clear Blood pressure stable 135/52 afebrile pulse of about 60 respirations of about 20 glucose about 160.. CBC and chemistry panels are normal patient is taking scheduled insulin as well as sliding scale. Continue as above with scheduled neb treatments now. Reason For Visit: ACUTE ASTHMA Physical Exam Vital Signs: Temp Pulse Resp BP Pulse Ox 97.9 F 56 L 20 135/52 H 96 10/24/18 07:34 10/24/18 07:34 10/24/18 07:34 10/24/18 07:34 10/24/18 07:34 Intake & Output 10/23/18 10/24/18 10/25/18 06:59 06:59 06:59 Intake Total 320 600 Output Total 2 Balance 320 598 Weight 77.111 kg 77.1 kg General appearance: PRESENT: mild distress Head exam: PRESENT: atraumatic, normocephalic Respiratory exam: PRESENT: decreased breath sounds - Patient states as long as she is in bed she is in no respiratory distress, however the slightest bit of activity exacerbates this, wheezes Cardiovascular exam: PRESENT: RRR. ABSENT: diastolic murmur, rubs, systolic murmur Neurological exam: PRESENT: alert, awake, oriented to person, oriented to place, oriented to time, oriented to situation, CN II-XII grossly intact. ABSENT: motor sensory deficit Psychiatric exam: PRESENT: appropriate affect, normal mood. ABSENT: homicidal ideation, suicidal ideation Results Laboratory Results: 10/24/18 06:14 10/24/18 06:14 10/23/18 10/24/18 10/24/18 08:50 06:14 06:14 WBC 5.6 RBC 4.48 Hgb 13.0 Hct 38.3 MCV 86 MCH 29.1 MCHC 34.0 RDW 14.0 Plt Count 65 L Seg Neutrophils % 80.3 H Lymphocytes % 13.7 Monocytes % 5.9 Eosinophils % 0.1 Basophils % 0.0 Absolute Neutrophils 4.5 Absolute Lymphocytes 0.8 Absolute Monocytes 0.3 Absolute Eosinophils 0.0 Absolute Basophils 0.0 Carbonic Acid 1.20 HCO3/H2CO3 Ratio 19:1 ABG pH 7.40 ABG pCO2 39.8 ABG pO2 60.7 L ABG HCO3 23.8 ABG O2 Saturation 91.3 L ABG Base Excess -0.9 FiO2 2L Sodium 140.4 Potassium 4.9 Chloride 107 Carbon Dioxide 25 Anion Gap 8 BUN 22 H Creatinine 0.68 Est GFR ( Amer) > 60 Est GFR (Non-Af Amer) > 60 Glucose 161 H Calcium 9.0 Phosphorus 3.3 Magnesium 1.9 Impressions: Chest X-Ray 10/22/18 15:19 IMPRESSION: NO ACUTE RADIOGRAPHIC FINDING IN THE CHEST. Assessment and Plan - Diagnosis (1) Asthma exacerbation Is this a current diagnosis for this admission?: Yes Plan: 10/23/2018 patient is much improved in the emergency room yesterday but I attribute this to the steroids ,frequent nebs and the BiPAP. While on the BiPAP patient's O2 sats 100%, on room air she is anywhere from 92-94 para graph ABG is pending for this morning patient was placed on Zithromax today 10/24/2018 patient does well in bed with getting up and walking causes her to be short of breath again and required BiPAP will make her nebulizer treatments now scheduled every 4 hours as well as her steroids and her Zithromax (2) Diabetes mellitus type 1 Qualifiers: Diabetes mellitus complication status: without complication Qualified Code(s): E10.9 - Type 1 diabetes mellitus without complications Is this a current diagnosis for this admission?: Yes Plan: 10/22/2018 put patient on her normal insulin and as well as a sliding scale, diabetic diet. 10/23/2018 patient's blood sugars are running in the low 200s and this is on Solu-Medrol she is getting her Lantus nighttime same dose as at home 10/24/18. She is blood sugars are running about 160 she is on a scheduled insulin as well as sliding scale. This is even on steroids. (3) GERD (gastroesophageal reflux disease) Is this a current diagnosis for this admission?: No (4) Hypothyroidism Qualifiers: Hypothyroidism type: unspecified Qualified Code(s): E03.9 - Hypothyroidism, unspecified Is this a current diagnosis for this admission?: No - Time Time Spent with patient: 15-24 minutes
[2018-10-24] MEDS ORDERED: IPRATROPIUM/ALBUTEROL 0.5-2.5 MG/3 ML AMPUL NEB SCH (10:00)
[2018-10-24] MEDS: PREGABALIN 100 MG CAPSULE PO SCH ×3 (10:21→21:57)
[2018-10-24] MEDS: FAMOTIDINE 20 MG TABLET PO SCH ×2 (10:21→22:06)
[2018-10-24] MEDS: DOCUSATE SODIUM 100 MG CAPSULE PO SCH (10:21)
[2018-10-24] MEDS: CETIRIZINE 10 MG TABLET PO SCH (10:22)
[2018-10-24] MEDS: AZITHROMYCIN 250 MG TABLET PO SCH (10:22)
[2018-10-24] MEDS: FENOFIBRATE NANOCRYSTALLIZED 145 MG TABLET PO SCH (10:23)
--- NOTE | 2018-10-24 11:36 | Physician Advisory Note ---
Physician Advisor ProgressNote .: Pursuant to the plan for [facility], I have reviewed the medical record for this patient. Physician Advisor Statement: 63yo diabetic pt on insulin, w/asthma requiring intubation for exac 4mo ago, along w/ GERD, bipolar dep, non-alcoholic cirrhosis, breast CA tx'd w/chemorad & partial mastec 2013, in w/cough/congestion/wheezing/SOB x 24h hrs, using neb q2h at home w/o relief, in mild distress w/RR31 even after 4 duonebs & Solumedrol & Mag IV in ED. Sats 92+% RA in ED, but on arrival to floor, needed Bipap; tachypnea continued & worsened without Bipap. Despite ongoing q8h Solumedrol & addition of Zithromax, cont's to have mild distress on d3, still needing Bipap, "slightest bit of activity exacerbates resp distress". Has been getting O2 at times, O2 sat as low as 94% on 2L o2 (gives P/F ratio of 261, which, if occurring in assoc w/resp distress or increased resp effort, is consistent with Acute Respiratory Failure if her baseline oxygenation is wnl). --> Approp for conversion to Inpt status. Documentation points to address: 1. Abx are not required for asthma exac (or COPD exac) unless attg suspects possible underlying infxn, such as acute bronchitis or PNA. There should be a (possible or definite) dx given that explains each tx given. Please document what, if any, suspected infxn (acute or chronic) is present in this case. 2. Not every asthma exac requires O2 & Bipap. Please state pt's baseline O2 sat (or O2 need), how she is different from that baseline during this stay, & what dx(s) explain the need for O2 & Bipap use. - By the way, ED dr/nurse state pt reports no COPD, but H&P states pt reports COPD. Can you clarify? Thanks, & welcome to [facility]! CK
[2018-10-24] MEDS: IPRATROPIUM/ALBUTEROL 0.5-2.5 MG/3 ML AMPUL NEB PRN (14:22)
[2018-10-24] MEDS: MONTELUKAST SODIUM 10 MG TABLET PO SCH (22:06)
[2018-10-24] MEDS: TRAZODONE HCL 50 MG TABLET PO SCH (22:06)
[2018-10-24] MEDS: INSULIN GLARGINE,HUM.REC.ANLOG 1,000 UNIT/10 ML VIAL SUBCUT SCH (22:07)
[2018-10-25 04:50] LABS: ABSOLUTE LYMPHOCYTES (AUTO) 0.7 10^3/uL (0.5-4.7); ABSOLUTE MONOCYTES (AUTO) 0.3 10^3/uL (0.1-1.4); ABSOLUTE NEUT (AUTO) 3.6 10^3/uL (1.7-8.2); HEMATOCRIT 40.6 % (36.0-47.0); HEMOGLOBIN 13.6 g/dL (12.0-15.5); LYMPHOCYTES % (AUTO) 15.9 % (13-45); MEAN CORPUSCULAR HEMOGLOBIN 28.6 pg (27.0-33.4); MEAN CORPUSCULAR HGB CONC 33.6 g/dL (32.0-36.0); MEAN CORPUSCULAR VOLUME 85 fl (80-97); MONOCYTES % (AUTO) 6.2 % (3-13); RED BLOOD COUNT 4.77 10^6/uL (3.72-5.28); RED CELL DISTRIBUTION WIDTH 14.4 % (11.5-14.0); SEGMENTED NEUTROPHILS % (AUTO) 77.9 % (42-78); TOTAL CELLS COUNTED % (AUTO) 100 %; WHITE BLOOD COUNT 4.6 10^3/uL (4.0-10.5)
[2018-10-25 04:54] LABS: PLATELET COUNT 66 10^3/uL (150-450)
[2018-10-25 05:02] LABS: ANION GAP 8 (5-19); BLOOD UREA NITROGEN 21 mg/dL (7-20); CALCIUM 9.5 mg/dL (8.4-10.2); CARBON DIOXIDE 27 mmol/L (22-30); CHLORIDE 106 mmol/L (98-107); GLUCOSE 134 mg/dL (75-110); POTASSIUM 4.7 mmol/L (3.6-5.0)
[2018-10-25] MEDS: METHYLPREDNISOLONE INJ 40 MG/1 ML SDV IV SCH ×3 (06:31→22:34)
[2018-10-25] MEDS: LEVOTHYROXINE SODIUM 0.05 MG TABLET PO SCH (06:31)
[2018-10-25] MEDS: INSULIN LISPRO 100 UNIT/ML 3 ML VIAL SUBCUT SCH ×4 (09:50→22:34)
[2018-10-25] MEDS: CETIRIZINE 10 MG TABLET PO SCH (10:10)
[2018-10-25] MEDS: AZITHROMYCIN 250 MG TABLET PO SCH (10:10)
[2018-10-25] MEDS: PREGABALIN 100 MG CAPSULE PO SCH ×3 (10:10→18:11)
[2018-10-25] MEDS: FAMOTIDINE 20 MG TABLET PO SCH ×2 (10:10→22:34)
[2018-10-25] MEDS: METFORMIN HCL 500 MG TABLET PO SCH ×2 (10:11→18:11)
[2018-10-25] MEDS: FENOFIBRATE NANOCRYSTALLIZED 145 MG TABLET PO SCH (10:11)
[2018-10-25] MEDS: DOCUSATE SODIUM 100 MG CAPSULE PO SCH (10:11)
[2018-10-25] MEDS: FLUTICASONE NASAL SPRAY 50 MCG/SPRY 120 SPRAY/16 GM NASL PRN (10:11)
[2018-10-25] MEDS: IPRATROPIUM/ALBUTEROL 0.5-2.5 MG/3 ML AMPUL NEB SCH ×4 (10:41→20:21)
[2018-10-25] MEDS: GUAIFENESIN SYRP 200 MG/10 ML UDC PO PRN (13:54)
[2018-10-25] MEDS ORDERED: (PENDING PHARMACY ID) (Tolterodine Tartrate [Tolterodine Tartrate Er] 4 MG) PO PRN (14:42)
--- NOTE | 2018-10-25 15:08 | PDOC PROGRESS REPORT ---
Subjective Progress Note for:: 10/25/18 Subjective:: This is a 63-year-old with a past medical history of asthma, bipolar disorder, insulin-dependent diabetes mellitus, hypertension and hypothyroidism who presented with increasing shortness of breath and wheezing. She denies a history of COPD. Patient was admitted for asthma exacerbation. She was initially BiPAP dependent. No acute event overnight. She is currently saturating well on 2 L nasal cannula. She says that she still has shortness of breath but she feels much better today but is not at her baseline yet. She does have bilateral wheezes. We will try to wean off O2 today. Decrease IV steroids. Reason For Visit: ACUTE ASTHMA EXACERBATION Physical Exam Vital Signs: Temp Pulse Resp BP Pulse Ox 97.7 F 80 18 134/62 H 93 10/25/18 04:51 10/25/18 11:50 10/25/18 11:50 10/25/18 07:26 10/25/18 11:50 Intake & Output 10/24/18 10/25/18 10/26/18 06:59 06:59 06:59 Intake Total 600 892 360 Output Total 2 Balance 598 892 360 Weight 169 lb 15.622 oz 170 lb General appearance: PRESENT: no acute distress, well-developed, well-nourished Head exam: PRESENT: atraumatic, normocephalic Eye exam: PRESENT: conjunctiva pink, EOMI, PERRLA. ABSENT: scleral icterus Ear exam: PRESENT: normal external ear exam Mouth exam: PRESENT: moist, tongue midline Neck exam: ABSENT: carotid bruit, JVD, lymphadenopathy, thyromegaly Respiratory exam: PRESENT: rhonchi, wheezes. ABSENT: rales Cardiovascular exam: PRESENT: RRR. ABSENT: diastolic murmur, rubs, systolic murmur Pulses: PRESENT: normal dorsalis pedis pul GI/Abdominal exam: PRESENT: normal bowel sounds, soft. ABSENT: distended, guarding, mass, organolmegaly, rebound, tenderness Rectal exam: PRESENT: deferred Extremities exam: PRESENT: full ROM. ABSENT: calf tenderness, clubbing, pedal edema Neurological exam: PRESENT: alert, awake, oriented to person, oriented to place, oriented to time, oriented to situation, CN II-XII grossly intact. ABSENT: motor sensory deficit Results Laboratory Results: 10/25/18 03:51 10/25/18 03:51 10/25/18 10/25/18 03:51 03:51 WBC 4.6 RBC 4.77 Hgb 13.6 Hct 40.6 MCV 85 MCH 28.6 MCHC 33.6 RDW 14.4 H Plt Count 66 L Seg Neutrophils % 77.9 Lymphocytes % 15.9 Monocytes % 6.2 Eosinophils % 0.0 Basophils % 0.0 Absolute Neutrophils 3.6 Absolute Lymphocytes 0.7 Absolute Monocytes 0.3 Absolute Eosinophils 0.0 Absolute Basophils 0.0 Sodium 140.6 Potassium 4.7 Chloride 106 Carbon Dioxide 27 Anion Gap 8 BUN 21 H Creatinine 0.64 Est GFR ( Amer) > 60 Est GFR (Non-Af Amer) > 60 Glucose 134 H Calcium 9.5 Phosphorus 3.0 Magnesium 1.9 Impressions: Chest X-Ray 10/22/18 15:19 IMPRESSION: NO ACUTE RADIOGRAPHIC FINDING IN THE CHEST. Assessment and Plan - Diagnosis (1) Asthma exacerbation Is this a current diagnosis for this admission?: Yes Plan: Add scheduled breathing treatments. Decrease Solu-Medrol from 40 q8 to 40 every 12. We will try to wean off O2 today. Discontinue azithromycin. (2) Insulin dependent diabetes mellitus Is this a current diagnosis for this admission?: Yes Plan: Reduce Lantus back to home dose steroids will also be decreased today. (3) Bipolar disorder Qualifiers: Active/Remission status: remission status unspecified Qualified Code(s): F31.9 - Bipolar disorder, unspecified Is this a current diagnosis for this admission?: Yes Plan: Resume home medications. (4) Hypothyroidism Qualifiers: Hypothyroidism type: unspecified Qualified Code(s): E03.9 - Hypothyroidism, unspecified Is this a current diagnosis for this admission?: Yes Plan: Resume Synthroid. - Time Time Spent with patient: 25-34 minutes
[2018-10-25] MEDS ORDERED: (PENDING PHARMACY ID) (Trazodone Hcl [Desyrel] 300 MG) PO SCH (22:00)
[2018-10-25] MEDS ORDERED: ATORVASTATIN CALCIUM 40 MG TABLET PO SCH (22:00)
[2018-10-25] MEDS ORDERED: DONEPEZIL HCL 5 MG TABLET PO SCH (22:00)
[2018-10-25] MEDS ORDERED: (PENDING PHARMACY ID) (Donepezil Hcl [Aricept] 10 MG) PO SCH (22:00)
[2018-10-25] MEDS ORDERED: TRAZODONE HCL 50 MG TABLET PO SCH (22:00)
[2018-10-25] MEDS: ZIPRASIDONE HCL 40 MG CAPSULE PO SCH (22:34)
[2018-10-25] MEDS: MONTELUKAST SODIUM 10 MG TABLET PO SCH (22:34)
[2018-10-25] MEDS: INSULIN GLARGINE,HUM.REC.ANLOG 1,000 UNIT/10 ML VIAL SUBCUT SCH (22:35)
[2018-10-26] MEDS: IPRATROPIUM/ALBUTEROL 0.5-2.5 MG/3 ML AMPUL NEB SCH ×3 (00:23→08:05)
[2018-10-26] MEDS ORDERED: LEVOTHYROXINE SODIUM 0.05 MG TABLET PO SCH (06:00)
[2018-10-26] MEDS: GUAIFENESIN SYRP 200 MG/10 ML UDC PO PRN (07:17)
[2018-10-26] MEDS ORDERED: ASPIRIN 81 MG TABLET, ENT COATED PO SCH (08:00)
[2018-10-26] MEDS: INSULIN LISPRO 100 UNIT/ML 3 ML VIAL SUBCUT SCH ×2 (08:51→11:57)
[2018-10-26] MEDS: METFORMIN HCL 500 MG TABLET PO SCH (08:51)
[2018-10-26] MEDS: FENOFIBRATE NANOCRYSTALLIZED 145 MG TABLET PO SCH (09:54)
[2018-10-26] MEDS: FAMOTIDINE 20 MG TABLET PO SCH (09:54)
[2018-10-26] MEDS: CETIRIZINE 10 MG TABLET PO SCH (09:54)
[2018-10-26] MEDS: PREGABALIN 100 MG CAPSULE PO SCH (09:54)
[2018-10-26] MEDS: DOCUSATE SODIUM 100 MG CAPSULE PO SCH (09:55)
[2018-10-26] MEDS: INSULIN GLARGINE,HUM.REC.ANLOG 1,000 UNIT/10 ML VIAL SUBCUT SCH (09:55)
[2018-10-26] MEDS: ZIPRASIDONE HCL 40 MG CAPSULE PO SCH (09:55)
[2018-10-26] MEDS: METHYLPREDNISOLONE INJ 40 MG/1 ML SDV IV SCH (09:55)
[2018-10-26] MEDS ORDERED: TOLTERODINE TARTRATE 1 MG TABLET PO SCH (10:00)
[2018-10-26] MEDS ORDERED: (PENDING PHARMACY ID) (Rosuvastatin Calcium [Crestor 20 Mg Tablet] 20 MG) PO SCH (10:00)
[2018-10-26 12:09] VITALS: BP 138/56
--- NOTE | 2018-10-26 18:06 | PDOC DISCHARGE SUMMARY ---
General - Admit/Disc Date/PCP Admission Date/Primary Care Provider: 10/22/18 17:20 YANICK VASQUES DO Discharge Date: 10/26/18 - Discharge Diagnosis (1) Asthma exacerbation Is this a current diagnosis for this admission?: Yes (2) Insulin dependent diabetes mellitus Is this a current diagnosis for this admission?: Yes (3) Bipolar disorder Is this a current diagnosis for this admission?: Yes (4) Hypothyroidism Is this a current diagnosis for this admission?: Yes - Additional Information Discharge Diet: As Tolerated Discharge Activity: Activity As Tolerated, Balance Activity w/Rest Prescriptions: Prednisone [Deltasone 20 mg Tablet] 20 mg PO BID 5 Days #10 tablet Home Medications: Acyclovir [Acyclovir 400 mg Tablet] 400 mg PO BID 10/24/18 Albuterol Sulfate [Proair HFA Inhalation Aerosol 8.5 gm MDI] 2 puff IH Q4HP PRN 10/24/18 Aspirin [Adult Low Dose Aspirin EC] 81 mg PO QAM 10/24/18 Celecoxib [Celebrex 200 mg Capsule] 200 mg PO QHS 10/24/18 Cetirizine HCl [Zyrtec 10 mg Tablet] 10 mg PO DAILYP PRN 10/24/18 Diclofenac Sodium [Voltaren] 100 gm TP QIDP PRN 10/24/18 Donepezil HCl [Aricept] 10 mg PO QHS 10/24/18 Exenatide Microspheres [Bydureon Pen] 2 mg SQ FR@1000 10/24/18 Fluticasone/Salmeterol [Advair 100-50 Diskus 14 Dose/Diskus] 1 inh IH BID 10/24/18 Insulin Aspart [Novolog Flexpen] 0 unit SUBCUT .SLD SCALE 10/24/18 Insulin Glargine,Hum.rec.anlog [Lantus Insulin 100 Unit/1 ml 10 ml] 45 unit SUBCUT Q12 10/24/18 Ipratropium/Albuterol Sulfate [Duoneb 3 ml Ampul] 3 ml NEB ASDIR PRN 10/24/18 Lamotrigine [Lamictal] 200 mg PO QHS 10/24/18 Levothyroxine Sodium [Synthroid 0.05 mg Tablet] 0.05 mg PO Q6AM 10/24/18 Loperamide HCl [Imodium 2 mg Capsule] 2 mg PO DAILYP PRN 10/24/18 Metformin HCl [Glucophage 500 mg Tablet] 500 mg PO BID 10/24/18 Montelukast Sodium [Singulair 10 mg Tablet] 10 mg PO DAILY 10/24/18 Nadolol [Corgard] 20 mg PO QAM 10/24/18 Pantoprazole Sodium [Protonix] 40 mg PO BID 10/24/18 Pnv No.95/Ferrous Fum/Folic AC [ Caplet] 1 each PO DAILY 10/24/18 Pregabalin [Lyrica 100 mg Capsule] 100 mg PO BID 10/24/18 Rosuvastatin Calcium [Crestor 20 mg Tablet] 20 mg PO DAILY 10/24/18 Tolterodine Tartrate [Tolterodine Tartrate ER] 4 mg PO DAILYP PRN 10/24/18 Trazodone HCl [Desyrel] 300 mg PO QHS 10/24/18 Ziprasidone HCl [Geodon 40 mg Capsule] 40 mg PO Q12 10/24/18 Prednisone [Deltasone 20 mg Tablet] 20 mg PO BID 5 Days #10 tablet 10/26/18 History of Present Illness History of Present Illness: Admitting hospitalist's H&P: IGOR MCCULLOUGH is a 63 year old female who comes in with a 1 day history of acute shortness of breath and coughing. Patient states yesterday she started coughing and wheezing. Patient states that she has been using her nebulizer about every 2 hours with no relief. Patient denies fever chills sweats or vomiting. Hospital Course Hospital Course: his is a 63-year-old with a past medical history of asthma, bipolar disorder, insulin-dependent diabetes mellitus, hypertension and hypothyroidism who presented with increasing shortness of breath and wheezing. Patient was admitted for asthma exacerbation. She was initially BiPAP dependent. She was given IV steroids and breathing treatments. She did respond well to management treatments. She returned to her baseline and was eventually weaned off O2. She ambulated the hallway on room air without any acute issue desaturation. She would be discharged on a short course of prednisone. He denies prior history of COPD but does have history of previous chronic smoker. She will be given an appointment with pulmonology for a formal PFT. Physical Exam Vital Signs: Temp Pulse Resp BP Pulse Ox 97.4 F 94 18 130/50 H 96 10/26/18 11:39 10/26/18 11:39 10/26/18 11:39 10/26/18 11:39 10/26/18 11:39 Intake & Output 10/25/18 10/26/18 10/27/18 06:59 06:59 06:59 Intake Total 892 1210 450 Output Total 0 Balance 892 1210 450 Weight 170 lb 170 lb 0.01 oz General appearance: PRESENT: no acute distress, well-developed, well-nourished Head exam: PRESENT: atraumatic, normocephalic Eye exam: PRESENT: conjunctiva pink, EOMI, PERRLA. ABSENT: scleral icterus Ear exam: PRESENT: normal external ear exam Mouth exam: PRESENT: moist, tongue midline Neck exam: ABSENT: carotid bruit, JVD, lymphadenopathy, thyromegaly Respiratory exam: PRESENT: clear to auscultation ravinder. ABSENT: rales, rhonchi, wheezes Cardiovascular exam: PRESENT: RRR. ABSENT: diastolic murmur, rubs, systolic murmur Pulses: PRESENT: normal dorsalis pedis pul GI/Abdominal exam: PRESENT: normal bowel sounds, soft. ABSENT: distended, guarding, mass, organolmegaly, rebound, tenderness Rectal exam: PRESENT: deferred Extremities exam: PRESENT: full ROM. ABSENT: calf tenderness, clubbing, pedal edema Neurological exam: PRESENT: alert, awake, oriented to person, oriented to place, oriented to time, oriented to situation, CN II-XII grossly intact. ABSENT: motor sensory deficit Results Laboratory Results: 10/25/18 03:51 10/25/18 03:51 Impressions: Chest X-Ray 10/22/18 15:19 IMPRESSION: NO ACUTE RADIOGRAPHIC FINDING IN THE CHEST. Qualifiers - * PATIENT BEING DISCHARGED WITH ANY OF THE FOLLOWING DIAGNOSIS: No Acute Heart Failure - Is this a Heart Failure Patient?: No LVEF < 40%?: No- if no continue to question #3 3. Anticoagulant therapy for permanect/persistent/paraoxysmal Afib or Aflutter: N/A
== END 2018-10-26 12:45 | disposition home or self-care (01) | DRG 203 ==
LOC: ER 14:56 → OBSVTOIN 17:20 → EH 17:20 → 3N 20:43
PROVIDERS: ADMIT Family Medicine; ATTEND Family Medicine
PROC: 5A09457 Assistance with Respiratory Ventilation, 24-96 Consecutive Hours, Continuous Positive Airway Pressure (ICD-10-PCS; principal; 2018-10-22)
DX: J45.901 Unspecified asthma with (acute) exacerbation (principal); K74.60 Unspecified cirrhosis of liver; E10.9 Type 1 diabetes mellitus without complications; K21.9 Gastro-esophageal reflux disease without esophagitis; M19.90 Unspecified osteoarthritis, unspecified site; F31.9 Bipolar disorder, unspecified; E03.9 Hypothyroidism, unspecified; D64.9 Anemia, unspecified; Z90.11 Acquired absence of right breast and nipple; Z87.891 Personal history of nicotine dependence; Z85.3 Personal history of malignant neoplasm of breast; Z92.21 Personal history of antineoplastic chemotherapy; Z88.2 Allergy status to sulfonamides; Z79.82 Long term (current) use of aspirin; Z79.51 Long term (current) use of inhaled steroids; Z79.4 Long term (current) use of insulin
CPT/HCPCS: 36415; 71045; 80048; 80053; 80061; 81001; 82140; 82803; 82962; 83735; 84100; 84443; 85025; 85610; 85730; 87070; 94640; 94660; 96365; 96375; 99285; J1815; J2920; J2930; J3475; J3490; J7620

== ENCOUNTER → 2019-02-20 | Outpatient (CLI) | payer OTHER ==
--- NOTE | 2019-02-20 11:41 | RADIOLOGY REPORT (SQ) ---
EXAM DESCRIPTION: CT CHEST WITHOUT COMPLETED DATE/TIME: 02/20/2019 11:23 am REASON FOR STUDY: OTHER NONSPECIFIC ABNORMAL FINDING OF LUNG FIELD (R91.8) R91.8 OTHER NONSPECIFIC ABNORMAL FINDING OF LUNG FIELD COMPARISON: Chest films 03/11/2018, 10/22/2018 CT chest 04/30/2015 TECHNIQUE: CT scan performed of the chest without intravenous contrast. Images reviewed with lung, soft tissue and bone windows. Reconstructed coronal and sagittal MPR images reviewed. All images st ored on PACS. All CT scanners at this facility use dose modulation, iterative reconstruction, and/or weight based d osing when appropriate to reduce radiation dose to as low as reasonably achievable (ALARA). [facility]: Dose Right [facility]: CareDose [facility]: Dose Right [facility]: Teradose 4D [facility]: TASS RADIATION DOSE: CT Rad equipment meets quality standard of care and radiation dose reduction techniq ues were employed. CTDIvol: 7.9 mGy. DLP: 312 mGy-cm. mGy. LIMITATIONS: No technical limitations. FINDINGS: LUNGS AND PLEURA: Old post radiation change in the anterior right upper lobe from breast r adiation therapy. No acute infiltrates. No pleural effusion. No pneumothorax. Airways are patent. HILAR AND MEDIASTINAL STRUCTURES: No identified masses or abnormal nodes. No obvious aneurysm. HEART AND VASCULAR STRUCTURES: No aneurysm. No pericardial effusion. UPPER ABDOMEN: There is portal hypertension with splenomegaly, spleen is 17 cm in length. Recannuliz ed umbilical vein. Multiple audie hepatis collaterals. THYROID AND OTHER SOFT TISSUES: No masses. No adenopathy. Old post therapeutic changes right breast with clips post lumpectomy. Radiation therapy changes. BONES: No significant finding. HARDWARE: None in the chest. OTHER: No other significant findings. IMPRESSION: Old post therapeutic changes right breast Portal hypertension with splenomegaly No worrisome lung findings. TECHNICAL DOCUMENTATION: JOB ID: [id number] Quality ID # [id number]: Final reports with documentation of one or more dose reduction techniques (e.g., Au tomated exposure control, adjustment of the mA and/or kV according to patient size, use of iterative reconstruction technique) 2010 [employer]- All Rights Reserved Reading location - IP/workstation name: [email or web address]
== END ==
LOC: RAD 11:00
PROVIDERS: ATTEND Internal Medicine Critical Care Medicine
DX: R91.8 Other nonspecific abnormal finding of lung field (principal); J45.909 Unspecified asthma, uncomplicated
CPT/HCPCS: 71250

== ENCOUNTER 2019-05-01 14:46 | Emergency (ER) | payer OTHER ==
[2019-05-01] MEDS ORDERED: OXYCODONE HCL IR 5 MG TABLET PO ONE (16:12)
--- NOTE | 2019-05-01 16:13 | ER Document Report ---
ED Medical Screen (RME) - General Stated Complaint: TOE PAIN Time Seen by Provider: 05/01/19 16:11 Primary Care Provider: ANGELINA WARNER MD [Primary Care Provider] - Follow up as needed Notes: 63-year-old female presents with left toe injury. Patient states she slammed into a door. There is obvious deviation of the left pinky toe. Distal pedal pulses are 2+. I have greeted and performed a rapid initial assessment of this patient. A co mprehensive ED assessment and evaluation of the patient, analysis of test results and completion of the medical decision making process with be conducted by additional ED providers. TRAVEL OUTSIDE OF THE [place] IN LAST 30 DAYS: No - Related Data Allergies/Adverse Reactions: Sulfa (Sulfonamide Antibiotics) Allergy (Severe, Verified 10/22/18 14:56) Hives Past Medical History - Past Medical History Cardiac Medical History: Reports: Hx Hypercholesterolemia Pulmonary Medical History: Reports: Hx Asthma, Hx Bronchitis, Hx Pneumonia Neurological Medical History: Reports: Hx Migraine Endocrine Medical History: Reports: Hx Diabetes Mellitus Type 1, Hx Diabetes Mellitus Type 2, Hx Hypothyroidism Renal/ Medical History: Denies: Hx Peritoneal Dialysis Malignancy Medical History: Reports: Hx Breast Cancer - S/P partial mastectomy, with chemoradiation treatment, completed 2013 GI Medical History: Reports: Hx Cirrhosis - Uncertain etiology per patient., Hx Gastroesophageal Reflux Disease Musculoskeltal Medical History: Reports Hx Arthritis Psychiatric Medical History: Reports: Hx Bipolar Disorder, Hx Depression Past Surgical History: Reports: Hx Hysterectomy, Hx Mastectomy - Partial right mastectomy, 2013, Hx Orthopedic Surgery - l hand. r foot surgeries, Hx Tonsillectomy - Immunizations Hx Diphtheria, Pertussis, Tetanus Vaccination: Yes - 2012 Physical Exam - Vital signs Vitals: Temp Pulse Resp BP Pulse Ox 97.4 F 62 16 122/60 96 05/01/19 14:51 05/01/19 14:51 05/01/19 14:51 05/01/19 14:51 05/01/19 14:51 Course - Vital Signs Vital signs: Temp Pulse Resp BP Pulse Ox 97.4 F 62 16 122/60 96 05/01/19 14:51 05/01/19 14:51 05/01/19 14:51 05/01/19 14:51 05/01/19 14:51 Doctor's Discharge - Discharge Referrals: ANGELINA WARNER MD [Primary Care Provider] - Follow up as needed
--- NOTE | 2019-05-01 16:37 | RADIOLOGY REPORT (SQ) ---
EXAM DESCRIPTION: FOOT LEFT 2 VIEWS COMPLETED DATE/TIME: 05/01/2019 4:25 pm REASON FOR STUDY: dislocated pinky toe, rule out fracture COMPARISON: None. NUMBER OF VIEWS: Two views. TECHNIQUE: AP and lateral radiographic images acquired of the left foot. LIMITATIONS: None. FINDINGS: MINERALIZATION: Normal. BONES: There is a transversely oriented fracture of the distal 5th proximal phalanx with dorsal later al displacement of the distal fracture fragment. No intra-articular extension. JOINTS: No effusions. SOFT TISSUES: No soft tissue swelling. No foreign body. OTHER: No other significant finding. IMPRESSION: Transversely oriented fracture of the distal aspect of the proximal 5th phalanx. There is dorsal and lateral displacement of the distal fracture fragment. TECHNICAL DOCUMENTATION: JOB ID: [id number] [employer]- All Rights Reserved Reading location - IP/workstation name: [email or web address]
[2019-05-01] MEDS ORDERED: BUPIVACAINE HCL 0.5 % INJ/PF 30 ML SDV INJ ONE (20:13)
[2019-05-01] MEDS ORDERED: ONDANSETRON 4 MG TAB.RAPDIS PO ONE (20:13)
[2019-05-01] MEDS ORDERED: OXYCODONE-ACETAMINOPHEN 5-325 MG TABLET PO ONE (20:13)
[2019-05-01] MEDS ORDERED: LIDOCAINE 1% INJ (10 MG/ML) 10 ML MDV INJ ONE (20:13)
--- NOTE | 2019-05-01 20:14 | ER Document Report ---
ED Extremity Problem, Lower - General Chief Complaint: Toe Injury Stated Complaint: TOE PAIN Time Seen by Provider: 05/01/19 16:11 Primary Care Provider: PHILLY BERRY DO [ACTIVE STAFF] - Follow up in 1 week Notes: Patient is a 63-year-old female that comes emergency department for chief complaint of injury to the left foot specifically at the left fifth digit, she states she accidentally slammed this toe into a wall when trying to go through a doorway. She states this angled to the toe and it appears to be fractured. She denies any other areas of pain. She denies any other injuries. She is not on blood thinners. She denies any open wounds. Family at bedside. TRAVEL OUTSIDE OF THE [place] IN LAST 30 DAYS: No - Related Data Allergies/Adverse Reactions: Sulfa (Sulfonamide Antibiotics) Allergy (Severe, Verified 10/22/18 14:56) Hives Past Medical History - General Information source: Patient - Social History Smoking Status: Never Smoker Frequency of alcohol use: None Drug Abuse: None Lives with: Family Family History: Reviewed & Not Pertinent Patient has suicidal ideation: No Patient has homicidal ideation: No - Past Medical History Cardiac Medical History: Reports: Hx Hypercholesterolemia Pulmonary Medical History: Reports: Hx Asthma, Hx Bronchitis, Hx Pneumonia Neurological Medical History: Reports: Hx Migraine Endocrine Medical History: Reports: Hx Diabetes Mellitus Type 1, Hx Diabetes Mellitus Type 2, Hx Hypothyroidism Renal/ Medical History: Denies: Hx Peritoneal Dialysis Malignancy Medical History: Reports: Hx Breast Cancer - S/P partial mastectomy, with chemoradiation treatment, completed 2013 GI Medical History: Reports: Hx Cirrhosis - Uncertain etiology per patient., Hx Gastroesophageal Reflux Disease Musculoskeletal Medical History: Reports Hx Arthritis Psychiatric Medical History: Reports: Hx Bipolar Disorder, Hx Depression Past Surgical History: Reports: Hx Hysterectomy, Hx Mastectomy - Partial right mastectomy, 2013, Hx Orthopedic Surgery - l hand. r foot surgeries, Hx Tonsillectomy - Immunizations Hx Diphtheria, Pertussis, Tetanus Vaccination: Yes - 2012 Review of Systems - Review of Systems Constitutional: No symptoms reported EENT: No symptoms reported Cardiovascular: No symptoms reported Respiratory: No symptoms reported Gastrointestinal: No symptoms reported Genitourinary: No symptoms reported Female Genitourinary: No symptoms reported Musculoskeletal: See HPI Skin: No symptoms reported Hematologic/Lymphatic: No symptoms reported Neurological/Psychological: No symptoms reported Physical Exam - Vital signs Vitals: Temp Pulse Resp BP Pulse Ox 97.4 F 62 16 122/60 96 05/01/19 14:51 05/01/19 14:51 05/01/19 14:51 05/01/19 14:51 05/01/19 14:51 - Notes Notes: GENERAL: Alert, interacts well. No acute distress. HEAD: Normocephalic, atraumatic. EYES: Pupils equal, round, and reactive to light. Extraocular movements intact. ENT: Oral mucosa moist, tongue midline. Oropharynx unremarkable. Airway patent. LUNGS: Clear to auscultation bilaterally, no wheezes, rales, or rhonchi. No respiratory distress. HEART: Regular rate and rhythm. No murmur ABDOMEN: Soft, non-tender. Non-distended. EXTREMITIES: Left fifth digit with angulation laterally of the left fifth toe with bruising and swelling. There is tenderness over this area. However the remaining toes, foot, ankle, leg exams are completely normal. Normal capillary refill and sensation. Normal distal neurovascular exam. Normal upper extremities. BACK: no cervical, thoracic, lumbar midline tenderness. No saddle anesthesia, normal distal neurovascular exam. NEUROLOGICAL: Alert and oriented x3. Normal speech. Cranial nerves II through XII grossly intact. PSYCH: Normal affect, normal mood. SKIN: Warm, dry, normal turgor. No rashes or lesions noted. Course - Re-evaluation Re-evalutation: X-ray indicates fracture, displacement of the left great toe. This is severely angulated. However the capillary fill and sensation are intact, remaining foot exam is normal. No other concerning findings. No open wounds. Discussed options with patient. Digital block was placed with complete anesthesia, I reduced this easily in one smooth motion, repeat x-ray was performed and shows good reduction in near anatomical alignment, neurovascular exam intact afterwards. Placed in grant splint, given crutches and postop shoe, referred to orthopedics, discussed expectations, follow-up, return precautions. Patient states appreciation and agreement. - Vital Signs Vital signs: Temp Pulse Resp BP Pulse Ox 97.7 F 56 L 18 114/48 L 99 05/01/19 22:56 05/01/19 22:56 05/01/19 22:56 05/01/19 22:56 05/01/19 22:56 Procedures - Joint Reduction/Fracture Care Left fifth toe Consent obtained: Yes Conscious sedation: No Pre-procedure NV exam: Yes Fracture: Closed Manipulation comment: Pulled in distraction then lifted into place Post-procedure NV exam: Yes Post-reduction x-ray: Joint reduced Reduction attempts: 1 Complications: No Notes: Left fifth digit was cleaned thoroughly with alcohol, digital block was performed using a total of 4 mls of combined 0.5% bupivacaine and 1% lidocaine. Excellent anesthesia was obtained using this digital block. After this I grasped the toe, distracted away from the foot, and then lifted into position with a crunch. This appeared to have anatomical alignment after this. I placed a grant tape splint, x-ray was performed to confirm reduction. No complications. Discharge - Discharge Clinical Impression: Toe fracture, left Qualifiers: Encounter type: initial encounter Toe: lesser toe Fracture type: closed Phalanx: middle Fracture alignment: displaced Qualified Code(s): S92.522A - Displaced fracture of middle phalanx of left lesser toe(s), initial encounter for closed fracture Condition: Stable Disposition: HOME, SELF-CARE Additional Instructions: Fractured Toe You have fractured your toe. Although this fracture doesn't need a cast or splint, emergency evaluation was needed to assess the straightness of the bones and joints. Reduction ("setting") is necessary for toe fractures which are crooked or twisted. A toe fracture will heal in about three weeks. The fractured toe is taped to the next toe. The second toe acts as a moving splint to protect the broken one. Ice and elevation help during the first 48 hours. Use the crutches and provided shoe initially for walking. When you begin walking, be careful NOT to do things that hurt. If weight bearing is not comfortable within a few days, you may require a special shoe, walking boot, or cast. Please follow closely with orthopedics referral for additional management. Take the pain medication as prescribed if needed, if you do also take MiraLAX stool softener to avoid constipation. Otherwise just take Tylenol for pain. Call the doctor or return at once if severe swelling, severe pain, or numbness develop in the toe, or if you suspect you may have re-injured it. Prescriptions: Polyethylene Glycol 3350 [Miralax Powder 17 gm/Packet] 1 packet PO DAILY #1 pkg Oxycodone HCl/Acetaminophen [Percocet 5-325 mg Tablet] 1 - 2 tab PO TID PRN #15 tablet PRN Reason: Referrals: PHILLY BERRY DO [ACTIVE STAFF] - Follow up in 1 week
--- NOTE | 2019-05-01 22:15 | RADIOLOGY REPORT (SQ) ---
EXAM DESCRIPTION: Single view of the foot and fifth toe CLINICAL HISTORY: 63 years Female, post reduction COMPARISON: Radiographs obtained earlier in the day at 4:24 PM FINDINGS: Fracture of the fifth proximal phalanx is again identified. There is no oblique fracture of the distal metaphysis. Alignment is significantly improved when compared to the previous exam. There is minimal apex medial angulation. Bone mineralization is diminished. No other fractures are identified. Soft tissue swelling. IMPRESSION: Fracture at the fifth proximal phalanx now has near anatomic alignment. Osteopenia.
[2019-05-01 22:59] VITALS: BP 114/48
== END 2019-05-01 23:12 | disposition home or self-care (01) ==
LOC: ER 14:46
DX: S92.522A Displaced fracture of middle phalanx of left lesser toe(s), initial encounter for closed fracture (principal); W22.01XA Walked into wall, initial encounter; J45.909 Unspecified asthma, uncomplicated; Z85.3 Personal history of malignant neoplasm of breast; Z92.21 Personal history of antineoplastic chemotherapy; Z92.3 Personal history of irradiation; Z88.2 Allergy status to sulfonamides
CPT/HCPCS: 99283; 99152; 73620; 73660; 28515; J3490; S0119

== ENCOUNTER 2019-11-29 14:55 | Emergency (ER) | payer OTHER ==
[2019-11-29] MEDS ORDERED: TRAMADOL HCL 50 MG TABLET PO ONE (15:11)
--- NOTE | 2019-11-29 15:25 | ER Document Report ---
HPI - HPI Patient complains to provider of: fall Time Seen by Provider: 11/29/19 14:59 Onset: Yesterday Onset/Duration: Sudden Quality of pain: Achy Pain Level: 3 Context: Patient states she missed a step yesterday and fell down 3 stairs. Patient with bilateral knee, ankle and foot pain. Patient denies any head injury or loss of consciousness, no chest pain or shortness of breath. Patient denies any nausea or vomiting. Patient denies any neck or back pain Associated Symptoms: denies: Headache, Nausea, Vomiting Exacerbated by: Standing, Movement, Walking Relieved by: Denies Similar symptoms previously: No Recently seen / treated by doctor: No - ROS ROS below otherwise negative: Yes Systems Reviewed and Negative: Yes All other systems reviewed and negative - CONSTITUTIONAL Constitutional: DENIES: Fever, Chills - NEURO Neurology: DENIES: Headache, Weakness - GASTROINTESTINAL Gastrointestinal: DENIES: Nausea, Patient vomiting - MUSCULOSKELETAL Musculoskeletal: REPORTS: Extremity pain - ravinder knee, ravinder feet, Swelling - DERM Skin Color: Ecchymosis Skin Problems: Abrasion Past Medical History - General Information source: Patient - Social History Smoking Status: Current Every Day Smoker Chew tobacco use (# tins/day): No Frequency of alcohol use: None Drug Abuse: None Family History: Reviewed & Not Pertinent Patient has homicidal ideation: No - Past Medical History Cardiac Medical History: Reports: Hx Hypercholesterolemia Pulmonary Medical History: Reports: Hx Asthma, Hx Bronchitis, Hx Pneumonia Neurological Medical History: Reports: Hx Migraine Endocrine Medical History: Reports: Hx Diabetes Mellitus Type 1, Hx Diabetes Mellitus Type 2, Hx Hypothyroidism Renal/ Medical History: Denies: Hx Peritoneal Dialysis Malignancy Medical History: Reports: Hx Breast Cancer - S/P partial mastectomy, with chemoradiation treatment, completed 2013 GI Medical History: Reports: Hx Cirrhosis - Uncertain etiology per patient., Hx Gastroesophageal Reflux Disease Musculoskeletal Medical History: Reports Hx Arthritis Psychiatric Medical History: Reports: Hx Bipolar Disorder, Hx Depression Past Surgical History: Reports: Hx Breast Surgery - rt lumpectomy, Hx Hysterectomy, Hx Mastectomy - Partial right mastectomy, 2013, Hx Orthopedic Surgery - RT hand, rt foot x2, Hx Tonsillectomy - Immunizations Hx Diphtheria, Pertussis, Tetanus Vaccination: Yes - 2012 Vertical Provider Document - CONSTITUTIONAL Agree With Documented VS: Yes Exam Limitations: No Limitations General Appearance: WD/WN, No Apparent Distress - INFECTION CONTROL TRAVEL OUTSIDE OF THE [place] IN LAST 30 DAYS: No - HEENT HEENT: Atraumatic, Normocephalic - NECK Neck: Normal Inspection, Supple. negative: Lymphadenopathy-Left, Lymphadenopathy-Right Notes: No cervical midline tenderness step-off or deformity - RESPIRATORY Respiratory: Breath Sounds Normal, No Respiratory Distress - CARDIOVASCULAR Cardiovascular: Regular Rate, Regular Rhythm Pulses: Normal: Dorsalis pedis - BACK Back: Normal Inspection Notes: No spinal midline tenderness step-off or deformity - MUSCULOSKELETAL/EXTREMETIES Musculoskeletal/Extremeties: Tender - Bilateral knee tenderness, no joint effusion, no laxity with varus or valgus maneuvers. Abrasion overlying right knee, small area of ecchymosis to anterior aspect of left knee. Notes: Lateral ankle tenderness to bilateral malleolar area, 3+ edema to right ankle, 2+ edema to left ankle. Patient with left midfoot tenderness, no ecchymosis or edema. Right midfoot tenderness, right first metatarsal tenderness with ecchym osis that extends to the right great toe. Course - Re-evaluation Re-evalutation: 11/29/19 Patient without any acute fracture or dislocation, will immobilize and refer to orthopedics for further management. Patient states she does have a walker at home. - Vital Signs Vital signs: Temp Pulse Resp BP Pulse Ox 98.1 F 76 18 111/46 L 94 11/29/19 15:05 11/29/19 15:05 11/29/19 15:05 11/29/19 15:05 11/29/19 15:05 - Diagnostic Test Radiology reviewed: Image reviewed, Reports reviewed Procedures - Immobilization Left Knee Pre-Proc Neuro Vasc Exam: Normal Immobilizer type: Zion wrap Performed by: PCT Post-Proc Neuro Vasc Exam: Normal Alignment checked and good: Yes Right Knee Pre-Proc Neuro Vasc Exam: Normal Immobilizer type: Zion wrap Performed by: PCT Post-Proc Neuro Vasc Exam: Normal Alignment checked and good: Yes Left Ankle Pre-Proc Neuro Vasc Exam: Normal Immobilizer type: Zion wrap Performed by: PCT Post-Proc Neuro Vasc Exam: Normal Alignment checked and good: Yes Right Ankle Pre-Proc Neuro Vasc Exam: Normal Immobilizer type: Zion wrap Performed by: PCT Post-Proc Neuro Vasc Exam: Normal Alignment checked and good: Yes Left Foot Pre-Proc Neuro Vasc Exam: Normal Immobilizer type: Post-op shoe Performed by: PCT Post-Proc Neuro Vasc Exam: Normal Alignment checked and good: Yes Right Foot Pre-Proc Neuro Vasc Exam: Normal Immobilizer type: Post-op shoe Performed by: PCT Post-Proc Neuro Vasc Exam: Normal Alignment checked and good: Yes Discharge - Discharge Clinical Impression: History of sprain of both ankles, Knee sprain, bilateral, Bilateral foot pain Fall Qualifiers: Encounter type: initial encounter Qualified Code(s): W19.XXXA - Unspecified fall, initial encounter Condition: Stable Disposition: HOME, SELF-CARE Instructions: Zion Wrap ([facility]), Use of Crutches ([facility]), Ice & Elevation ([facility]), Post-Op Shoe ([facility]), Sprained Knee ([facility]) Additional Instructions: Return immediately for any new or worsening symptoms Followup with your primary care provider, call tomorrow to make a followup appointment Weightbearing as tolerated Follow-up with orthopedics for further evaluation, call tomorrow for an appointment MUSCLE STRAIN: You have strained a muscle -- torn the fibers within the muscle. This often occurs with strenuous exertion, or during an injury that suddenly stretches the muscle. The seriousness of a strain varies. Some strains heal within days, others cause problems for months. X-rays cannot show a muscle strain. X-rays are taken only if symptoms suggest that a fracture could be present. The usual treatment of a muscle strain is rest and ice packs. Sometimes, a sling, splint, or crutches may be necessary to rest the muscle. The muscle can be used again once pain subsides. Severe strains require a special exercise and stretching program to prevent permanent stiffness and disability. Your doctor will advise you if this will be necessary. Call the doctor immediately if pain or swelling becomes severe, or if numbness or discoloration develop. CONTUSION: Your injury has resulted in a contusion -- a crushing of the deep tissues. No injury to important structures was detected during the physician's exam. Contusions vary in the amount of pain they cause, and in the length of time required for healing. Typically, the area will become bruised, and will remain painful to touch for two or three weeks. However, most patients are back to working and playing within a few days. After the initial period of rest and cold-packs, your symptoms (together with the doctor's recommendations) will determine how rapidly you can get back to full activity. Usually this means "do what feels okay, but don't do things that hurt." If re-examination was recommended, it's important to follow up as instructed. Call the doctor or return any time if pain increases, if swelling becomes severe, if you develop numbness or weakness in an injured extremity, or if any other alarming symptoms occur. ABRASIONS: An abrasion is a scraping injury of the skin. Some scarring may result. The seriousness of an abrasion is not always obvious at first. Hidden tissue damage may be present and infection may occur despite proper care. Complete healing may take from ten days to as long as a month. The healing time depends on the depth of the abrasion, and on the amount of crushing of underlying tissues from the injury. Keep the wound and dressing clean. Do not shower or bathe the area until okayed by the doctor. If the dressing gets wet, remove it and blot the wound dry, then reapply a clean dressing. Dressings should be changed every day. Sunscreen should be used for six months after the skin is healed. If any signs of infection occur (swelling, redness, increasing tenderness, red streaks, profuse purulent drainage from the abrasion, tender lumps in the armpit or groin above the abrasion, or fever), see the doctor immediately. USE OF TYLENOL (ACETAMINOPHEN): Acetaminophen may be taken for pain relief or fever control. It's much safer than aspirin, offering a wider range of "safe" dosages. It is safe during . Some brand names are Tylenol, Panadol, Datril, Anacin 3, Tempra, and Liquiprin. Acetaminophen can be repeated every four hours. The following are maximum recommended dosages: WEIGHT Dose Drops Elixir Chewable(80mg) (LBS.) drprs=droppers tsp=teaspoon >89 pounds or adults 650 mg to 900 mg Acetaminophen can be repeated every four hours. Maximum dose not to exceed 4000 mg a day. These maximum recommended dosages are slightly higher than the dosages written on the product container, but these dosages are very safe and below the toxic dosage for acetaminophen. ICE PACKS: Apply ice packs frequently against the painful area. Many different schedules are recommended, such as "20 minutes on, 20 minutes off" or "one hour ice, two hours rest." If you need to work, you may need to go longer between ice treatments. You should plan to have the area ice packed AT LEAST one fourth of the time. The ice should be applied over the wrap, tape, or splint, or over a layer of cloth -- not directly against the skin. Some ice bags have a built-in cloth and can be put directly on the skin. WARM PACKS: After approximately two days, apply gentle heat (such as a heating pad or hot water bottle) for about 20 to 30 minutes about every two hours -- at least four times daily. Warmth and elevation will help you make a more rapid recovery, and will ease the pain considerably. Do not use HOT heat, and never apply heat for longer than 30 minutes. The continuous heat can invisibly damage skin and muscles -- even when no burn is seen on the surface. Damaged muscles can make you MORE sore. ORAL NARCOTIC MEDICATION: You have been given a prescription for pain control. This medication is a narcotic. It's best taken with food, as nausea can result if taken on an empty stomach. Don't operate machinery or drive within six hours of taking this medication. Do not combine this medicine with alcohol, or with any medication which can cause sedation (such as cold tablets or sleeping pills) unless you get permission from the physician. Narcotics tend to cause constipation. If possible, drink plenty of fluids and eat a diet high in fiber and fruits. FOLLOW-UP CARE: If you have been referred to a physician for follow-up care, call the physicians office for an appointment as you were instructed or within the next two days. If you experience worsening or a significant change in your symptoms, notify the physician immediately or return to the Emergency Department at any time for re-evaluation. Prescriptions: Tramadol HCl [Ultram 50 mg Tablet] 50 mg PO ASDIR PRN #12 tablet PRN Reason: Referrals: YANICK VASQUES DO [NO LOCAL MD] - Follow up as needed [facility] [Provider Group] - Follow up as needed
--- NOTE | 2019-11-29 16:14 | RADIOLOGY REPORT (SQ) ---
EXAM DESCRIPTION: KNEE RIGHT 4 VIEWS IMAGES COMPLETED DATE/TIME: 11/29/2019 3:57 pm REASON FOR STUDY: fall down stairs, foot/ankle/knee pain COMPARISON: None. NUMBER OF VIEWS: Four views. TECHNIQUE: AP, lateral, and both oblique radiographic images acquired of the right knee. LIMITATIONS: None. FINDINGS: MINERALIZATION: Normal. BONES: No acute fracture or dislocation. JOINT: No effusion. SOFT TISSUES: No soft tissue swelling. OTHER: No other finding. IMPRESSION: No acute osseous abnormality of the right knee. TECHNICAL DOCUMENTATION: JOB ID: [id number] 2010 [employer]- All Rights Reserved Reading location - IP/workstation name: [email or web address]
--- NOTE | 2019-11-29 16:15 | RADIOLOGY REPORT (SQ) ---
EXAM DESCRIPTION: KNEE LEFT 4 VIEW IMAGES COMPLETED DATE/TIME: 11/29/2019 3:57 pm REASON FOR STUDY: fall down stairs, foot/ankle/knee pain COMPARISON: None. NUMBER OF VIEWS: Four views. TECHNIQUE: AP, lateral, and both oblique radiographic images acquired of the left knee. LIMITATIONS: None. FINDINGS: MINERALIZATION: Normal. BONES: No acute fracture or dislocation. JOINT: No effusion. SOFT TISSUES: No soft tissue swelling. OTHER: No other finding. IMPRESSION: No acute osseous abnormality of the left knee. TECHNICAL DOCUMENTATION: JOB ID: [id number] 2010 [employer]- All Rights Reserved Reading location - IP/workstation name: [email or web address]
--- NOTE | 2019-11-29 16:31 | RADIOLOGY REPORT (SQ) ---
EXAM DESCRIPTION: ANKLE BILATERAL 3 VIEWS MIN IMAGES COMPLETED DATE/TIME: 11/29/2019 3:57 pm REASON FOR STUDY: fall down stairs, foot/ankle/knee pain COMPARISON: None. NUMBER OF VIEWS: Three views. TECHNIQUE: AP, lateral, and oblique radiographic images acquired of the right and left ankles. LIMITATIONS: None. FINDINGS: LEFT ANKLE: MINERALIZATION: Osteopenia. BONES: No acute fracture or dislocation. The ankle mortise and talar dome are intact. JOINTS: No effusion. SOFT TISSUES: Mild soft tissue swelling. OTHER: No other finding. RIGHT ANKLE: MINERALIZATION: Osteopenia. BONES: Posttraumatic deformities of the distal fibula and medial malleolus. There is no acute fractu re dislocation. The ankle mortise and talar dome are intact. JOINTS: No effusion. SOFT TISSUES: Mild soft tissue swelling. OTHER: No other finding. IMPRESSION: No acute osseous abnormality of the ankles. TECHNICAL DOCUMENTATION: JOB ID: [id number] 2010 [employer]- All Rights Reserved Reading location - IP/workstation name: [email or web address]
--- NOTE | 2019-11-29 16:36 | RADIOLOGY REPORT (SQ) ---
EXAM DESCRIPTION: FOOT BILATERAL 3 VIEWS IMAGES COMPLETED DATE/TIME: 11/29/2019 3:57 pm REASON FOR STUDY: fall down stairs, foot/ankle/knee pain COMPARISON: None. NUMBER OF VIEWS: Three views. TECHNIQUE: AP, lateral and oblique radiographic images acquired of the right and left feet. LIMITATIONS: None. FINDINGS: RIGHT FOOT: MINERALIZATION: Osteopenia. BONES: Chronic fracture deformity of the proximal 5th phalanx. There is no acute fracture. JOINTS: The normal tarsometatarsal alignment is preserved. There is osteoarthrosis of the 1st and 2n d tarsometatarsal joints. SOFT TISSUES: No radiopaque foreign body. OTHER: Enthesophytes at the calcaneal insertion of the plantar fascia. LEFT FOOT: MINERALIZATION: Osteopenia. BONES: No acute fracture or dislocation. JOINTS: The normal tarsometatarsal alignment is preserved. There is osteoarthrosis of the 1st MTP an d IP joints. SOFT TISSUES: No radiopaque foreign body. OTHER: Enthesophytes at the calcaneal insertion of the plantar fascia. IMPRESSION: No acute osseous abnormality of the feet. TECHNICAL DOCUMENTATION: JOB ID: [id number] 2010 [employer]- All Rights Reserved Reading location - IP/workstation name: [email or web address]
[2019-11-29 17:08] VITALS: BP 132/49
== END 2019-11-29 16:54 | disposition home or self-care (01) ==
LOC: ER 14:55
DX: S93.402A Sprain of unspecified ligament of left ankle, initial encounter (principal); S93.401A Sprain of unspecified ligament of right ankle, initial encounter; S83.92XA Sprain of unspecified site of left knee, initial encounter; S83.91XA Sprain of unspecified site of right knee, initial encounter; M79.672 Pain in left foot; M79.671 Pain in right foot; W10.9XXA Fall (on) (from) unspecified stairs and steps, initial encounter; Y92.009 Unspecified place in unspecified non-institutional (private) residence as the place of occurrence of the external cause; F17.200 Nicotine dependence, unspecified, uncomplicated; E78.00 Pure hypercholesterolemia, unspecified
CPT/HCPCS: 99284

== ENCOUNTER 2020-04-02 13:17 | Emergency (ER) | payer OTHER ==
[2020-04-02 13:25] VITALS: BP 121/58
[2020-04-02] MEDS ORDERED: ACETAMINOPHEN 325 MG TABLET PO ONE (14:03)
--- NOTE | 2020-04-02 14:32 | RADIOLOGY REPORT (SQ) ---
EXAM DESCRIPTION: ANKLE RIGHT COMPLETE IMAGES COMPLETED DATE/TIME: 04/02/2020 2:22 pm REASON FOR STUDY: s/p fall x 4 days ago down 3 steps, +pain COMPARISON: 11/29/2019. NUMBER OF VIEWS: Three views. TECHNIQUE: AP, lateral, and oblique radiographic images acquired of the right ankle. LIMITATIONS: None. FINDINGS: MINERALIZATION: Normal. BONES: No acute fracture or dislocation. Old posttraumatic deformities of the distal tibia and fibul a. No worrisome bone lesions. JOINTS: No effusions. SOFT TISSUES: Soft tissue swelling. No foreign body. OTHER: No other significant finding. IMPRESSION: SOFT TISSUE SWELLING. OLD FRACTURES. NO IDENTIFIED ACUTE FRACTURES. TECHNICAL DOCUMENTATION: JOB ID: [id number] 2010 [employer]- All Rights Reserved Reading location - IP/workstation name: [email or web address]
--- NOTE | 2020-04-02 14:33 | RADIOLOGY REPORT (SQ) ---
EXAM DESCRIPTION: FOOT RIGHT COMPLETE IMAGES COMPLETED DATE/TIME: 04/02/2020 2:22 pm REASON FOR STUDY: s/p fall x 4 days ago down 3 steps, +pain COMPARISON: 10/16/2018. NUMBER OF VIEWS: Three views. TECHNIQUE: AP, lateral and oblique radiographic images acquired of the right foot. LIMITATIONS: None. FINDINGS: MINERALIZATION: Normal. BONES: No acute fracture or dislocation. Degenerative changes in the midfoot. No worrisome bone les ions. JOINTS: No effusions. SOFT TISSUES: No soft tissue swelling. No foreign body. OTHER: No other significant finding. IMPRESSION: DEGENERATIVE CHANGES. NO RADIOGRAPHIC EVIDENCE OF ACUTE INJURY. TECHNICAL DOCUMENTATION: JOB ID: [id number] 2010 [employer]- All Rights Reserved Reading location - IP/workstation name: [email or web address]
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
== END 2020-04-03 09:02 | disposition home or self-care (01) ==
LOC: ER 13:17
DX: M79.671 Pain in right foot (principal); M25.571 Pain in right ankle and joints of right foot; W10.9XXA Fall (on) (from) unspecified stairs and steps, initial encounter; J45.909 Unspecified asthma, uncomplicated
CPT/HCPCS: 99283